=== PATIENT | male | born 1960 | race Caucasian/White ===

== ENCOUNTER 2021-04-20 14:40 | Emergency (ER) | payer OTHER, SELFPAY ==
[2021-04-20 14:44] VITALS: BP 152/99; PULSE 99; RESP 22; TEMP 36.9; O2SAT 97; BMI 33.4
--- NOTE | 2021-04-20 14:51 | ECG_ITS ---
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 Measurements Intervals [place] Rate: 104 P: 42 NC: 130 QRS: -6 QRSD: 93 T: 30 QT: 335 QTc: 442 Interpretive Statements SINUS TACHYCARDIA No previous ECG available for comparison Electronically Signed On 04-20-2021 18:08:48 CDT by Ramón العراقي M.D. [id number]
--- NOTE | 2021-04-20 15:09 | XRR_ITS ---
PROCEDURE INFORMATION: Exam: XR Chest Exam date and time: 04/20/2021 4:15 PM Age: 60 years old Clinical indication: Other: Chest pain TECHNIQUE: Imaging protocol: XR of the chest. Views: 1 view. COMPARISON: No relevant prior studies available. FINDINGS: Lungs: Unremarkable. No consolidation. Pleural spaces: Unremarkable. No pleural effusion. No pneumothorax. Heart/Mediastinum: Unremarkable. No cardiomegaly. Bones/joints: Unremarkable. XR/XR chest 1V portable [id number] IMPRESSION: No acute findings.
[2021-04-20 16:12] VITALS: BP 143/85; PULSE 86; RESP 19; O2SAT 97
[2021-04-20 16:15] LABS: Basophils % 0.2 %; Hematocrit 45.6 % (42.0-52.0); Hemoglobin 16.2 g/dL (11.7-16.6); Lymphocytes # 0.9 10^3/uL (0.8-4.8); Lymphocytes % 14.7 %; Mean Corpuscular HGB Conc 35.5 g/dL (30.0-36.0); Mean Corpuscular Hemoglobin 30.5 pg (28.0-34.0); Mean Corpuscular Volume 85.7 fL (80-94); Mean Platelet Volume 10.9 fL (7.4-10.4); Monocytes # 0.3 10^3/uL (0.2-0.9); Monocytes % 4.2 %; Neutrophils # 4.83 10^3/uL (1.8-7.7); Neutrophils % 80.4 %; Nucleated Red Blood Cells % 0 %; Platelet Count 133 10^3/cmm (130-400); Red Blood Count 5.32 10^6/uL (4.1-5.3); Red Cell Distribution Width 12.1 % (12.1-15.1)
[2021-04-20 16:27] VITALS: O2SAT 95
[2021-04-20 16:44] VITALS: TEMP 37.4
[2021-04-20 16:49] LABS: Alanine Aminotransferase 54 U/L (0-41); Albumin Level 3.8 g/dL (3.5-5.2); Alkaline Phosphatase 44 IU/L (40-130); Anion Gap 16.7 (5-19); Aspartate Amino Transferase 82 U/L (0-40); Blood Urea Nitrogen 11 mg/dL (6-20); Calcium 8.1 mg/dL (8.5-10.5); Carbon Dioxide 24 mmol/L (22-29); Chloride 98 mmol/L (98-107); Globulin 2.5 g/dL (1.3-4.6); Glomerular Filtration Rate 99.3 mL/min (90-130); Glucose 123 mg/dL (65-115); Lipase 42 U/L (13-60); Osmolality Calculated 281 mOsm/kg (285-295); Potassium 3.7 mmol/L (3.5-5.1); Sodium 135 mmol/L (136-145); Total Bilirubin 0.5 mg/dL (0.15-1.2); Total Protein 6.3 g/dL (6.6-8.7)
[2021-04-20 16:50] LABS: Troponin(5th) Baseline 7 ng/L (0-15)
[2021-04-20 16:54] LABS: NT Pro B Type Natriuretic Pept 5 pg/mL (0-125); Procalcitonin 0.06 ng/mL (0-0.5)
[2021-04-20 17:02] VITALS: BP 126/81; PULSE 84; RESP 20; O2SAT 96
[2021-04-20 17:05] LABS: C Reactive Protein 38.5 mg/L (0.0-4.9)
[2021-04-20 17:12] LABS: Fibrinogen 498 mg/dL (174-498)
[2021-04-20 17:15] LABS: D Dimer 0.46 ug/mIFEU (0-0.59)
[2021-04-20 17:17] LABS: Ferritin 2321 ng/mL (30-400)
[2021-04-20 17:21] LABS: Lactic Sepsis W/Reflex 1.2 mmol/L (0.5-2.2)
[2021-04-20 17:23] LABS: SARS Covid-2 Antigen Positive (Negative)
--- NOTE | 2021-04-20 18:29 | ED_ITS ---
HPI - COVID General: Chief Complaint: COVID symptoms Stated Complaint: Chest Pain, SOB Time Seen by Provider: 04/20/21 15:54 Source: patient and RN notes reviewed Mode of arrival: ambulatory Limitations: no limitations Triage information: No fever, cough or shortness of breath . Exposure to COVID + person last 14 days History of Present Illness: HPI Narrative: 60-year-old male presents to the emergency department with fever, progressively worsening shortness of breath. Symptoms started 8 days ago. His daughter and son-in-law tested positive for COVID-19 and is currently on quarantine. He endorses some chest pain that started today. MD complaint: reported COVID exposure and has COVID symptoms Prior covid testing: no COVID 19 common symptoms: positive fever(s), chills, cough, dyspnea, fatigue, body aches and nausea; negative headache(s), loss of sense of smell and/or taste, throat pain, nasal congestion or vomiting COVID 19 other sytmptoms: positive chest pain and lethargy; negative requiring oxygen, requiring more oxygen, respiratory distress, cyanosis, confusion or new neurological complaints Onset (ago): day(s) (8) Severity: moderate Pertinent comorbid conditions: hypertension Treatment prior to arrival: none COVID Results: SARS-CoV-2 Antigen (Rapid) Positive (Negative) H 04/20/21 16:06 04/20/21 Review of Systems General: Reports: 10 or more systems reviewed and unremarkable except in HPI and below Const: Reports: fever(s), chills, body aches and fatigue ENMT: Denies: throat pain or nasal congestion Card: Reports: chest pain Resp: Reports: dyspnea GI: Reports: nausea; Denies: vomiting Neuro: Denies: headache(s) or confusion Physical Exam Const: COMMON NORMALS: no acute distress, average body habitus, patient oriented x3, no limitations, healthy appearing, alert and well nourished HENMT: COMMON NORMALS: normocephalic, atraumatic and moist oral mucous membranes HEAD & SCALP: normocephalic and atraumatic Neck/C-Spine: COMMON NORMALS: no meningeal signs and no JVD Chest: COMMONS NORMALS: normal inspection of the chest and normal palpation of entire chest wall Resp: COMMON NORMALS: normal respiratory effort, No retractions, No use of accessory muscles, clear to auscultation bilaterally and percussion normal AUSCULTATION: clear to auscultation bilaterally PERCUSSION: percussion normal Cardio: COMMON NORMALS: no JVD, regular rate, regular rhythm, S1 normal heart sound present, S2 normal heart sound present, No gallops present (Cardio), No clicks present (Cardio), No murmurs present (Cardio), No rub (Cardio) and Peripheral pulses 2+ throughout RATE: regular rate RHYTHM: regular rhythm HEART SOUNDS: S1 normal heart sound present and S2 normal heart sound present PERIPHERAL PULSES: Peripheral pulses 2+ throughout GI: COMMON NORMALS: Normal to inspection, nondistended, normoactive bowel sounds present, Soft to palpation, non-tender, No hepatosplenomegaly present, no masses and no bruits PALPATION: Yes Soft to palpation and Yes No hepatosplenomegaly present Extremity: COMMON NORMALS: normal to inspection, full ROM, capillary refill normal, no calf tenderness and no pedal edema Neuro: COMMON NORMALS: patient oriented x3 SENSORIUM/ORIENTATION: Yes alert MENINGEAL SIGNS: Yes no meningeal signs Course Vital Signs: Vital signs: Vital Signs Temperature 99.3 F 04/20/21 16:44 Pulse Rate 90 04/20/21 18:54 Respiratory Rate 19 H 04/20/21 18:54 Blood Pressure 128/82 04/20/21 18:54 Pulse Oximetry 96 04/20/21 18:54 MDM - COVID MDM Narrative: Medical decision making narrative: 60-year-old male who presents to the emergency department with Covid symptoms. His daughter currently has Covid and is on quarantine. Symptoms include fever, body aches, some chest pain. Evaluation in the emergency department shows he tested p ositive for COVID-19. Other work-up unremarkable. He is not requiring oxygen and his oxygen saturation is around 97% on room air. He is discharged home. He will be scheduled for a monoclonal antibody infusion. Medical Records: Attestation: I reviewed the patient's medical records. Lab Data: Attestation: I reviewed the patient's lab results. Labs: Lab Results 04/20/21 04/20/21 04/20/21 Range/Units 16:06 16:06 16:06 WBC 6.0 (4.0-10.0) 10^3/ uL RBC 5.32 H (4.1-5.3) 10^6/u L Hgb 16.2 (11.7-16.6) g/dL Hct 45.6 (42.0-52.0) % MCV 85.7 (80-94) fL MCH 30.5 (28.0-34.0) pg MCHC 35.5 (30.0-36.0) g/dL RDW 12.1 (12.1-15.1) % Plt Count 133 (130-400) 10^3/c mm MPV 10.9 H (7.4-10.4) fL Neut % (Auto) 80.4 % Lymph % (Auto) 14.7 % [place] % (Auto) 4.2 % Eos % (Auto) 0.0 % Baso % (Auto) 0.2 % Neut # (Auto) 4.83 (1.8-7.7) 10^3/u L Lymph # (Auto) 0.9 (0.8-4.8) 10^3/u L [place] # (Auto) 0.3 (0.2-0.9) 10^3/u L Eos # (Auto) 0.0 (0.0-0.8) 10^3/u L Baso # (Auto) 0.0 (0.0-0.1) 10^3/u L Nucleated RBC % (a uto) 0 % Nucleated RBCs # 0.0 /100WBC Fibrinogen (174-498) mg/dL D-Dimer (0-0.59) ug/mIFE U Sodium 135 L (136-145) mmol/L Potassium 3.7 (3.5-5.1) mmol/L Chloride 98 (98-107) mmol/L Carbon Dioxide 24 (22-29) mmol/L Anion Gap 16.7 (5-19) BUN 11 (6-20) mg/dL Creatinine 0.8 (0.7-1.2) mg/dL GFR Calculation 99.3 (90-130) mL/min Glucose 123 H (65-115) mg/dL Calculated Osmolal ity 281 L (285-295) mOsm/k g Lactic Acid (0.5-2.2) mmol/L Calcium 8.1 L (8.5-10.5) mg/dL Ferritin (30-400) ng/mL Total Bilirubin 0.5 (0.15-1.2) mg/dL AST 82 H (0-40) U/L ALT 54 H (0-41) U/L Alkaline Phosphata se 44 (40-130) IU/L Troponin T Baselin e 7 (0-15) ng/L Troponin T 120 Min nondalton (0-15) ng/L Delta Troponin T (0-10) ABS# C-Reactive Protein (0.0-4.9) mg/L NT-Pro-B Natriuret Pep (0-125) pg/mL Total Protein 6.3 L (6.6-8.7) g/dL Albumin 3.8 (3.5-5.2) g/dL Globulin 2.5 (1.3-4.6) g/dL Lipase 42 (13-60) U/L Procalcitonin (0-0.5) ng/mL SARS-CoV-2 Ag (Rap id) (Negative) 04/20/21 04/20/21 04/20/21 Range/Units 16:06 16:06 16:36 WBC (4.0-10.0) 10^3/ uL RBC (4.1-5.3) 10^6/u L Hgb (11.7-16.6) g/dL Hct (42.0-52.0) % MCV (80-94) fL MCH (28.0-34.0) pg MCHC (30.0-36.0) g/dL RDW (12.1-15.1) % Plt Count (130-400) 10^3/c mm MPV (7.4-10.4) fL Neut % (Auto) % Lymph % (Auto) % [place] % (Auto) % Eos % (Auto) % Baso % (Auto) % Neut # (Auto) (1.8-7.7) 10^3/u L Lymph # (Auto) (0.8-4.8) 10^3/u L [place] # (Auto) (0.2-0.9) 10^3/u L Eos # (Auto) (0.0-0.8) 10^3/u L Baso # (Auto) (0.0-0.1) 10^3/u L Nucleated RBC % (a uto) % Nucleated RBCs # /100WBC Fibrinogen 498 (174-498) mg/dL D-Dimer 0.46 (0-0.59) ug/mIFE U Sodium (136-145) mmol/L Potassium (3.5-5.1) mmol/L Chloride (98-107) mmol/L Carbon Dioxide (22-29) mmol/L Anion Gap (5-19) BUN (6-20) mg/dL Creatinine (0.7-1.2) mg/dL GFR Calculation (90-130) mL/min Glucose (65-115) mg/dL Calculated Osmolal ity (285-295) mOsm/k g Lactic Acid (0.5-2.2) mmol/L Calcium (8.5-10.5) mg/dL Ferritin 2321 H (30-400) ng/mL Total Bilirubin (0.15-1.2) mg/dL AST (0-40) U/L ALT (0-41) U/L Alkaline Phosphata se (40-130) IU/L Troponin T Baselin e (0-15) ng/L Troponin T 120 Min nondalton (0-15) ng/L Delta Troponin T (0-10) ABS# C-Reactive Protein 38.5 H (0.0-4.9) mg/L NT-Pro-B Natriuret Pep 5 (0-125) pg/mL Total Protein (6.6-8.7) g/dL Albumin (3.5-5.2) g/dL Globulin (1.3-4.6) g/dL Lipase (13-60) U/L Procalcitonin 0.06 (0-0.5) ng/mL SARS-CoV-2 Ag (Rap id) Positive H (Negative) 04/20/21 04/20/21 Range/Units 16:36 18:18 WBC (4.0-10.0) 10^3/ uL RBC (4.1-5.3) 10^6/u L Hgb (11.7-16.6) g/dL Hct (42.0-52.0) % MCV (80-94) fL MCH (28.0-34.0) pg MCHC (30.0-36.0) g/dL RDW (12.1-15.1) % Plt Count (130-400) 10^3/c mm MPV (7.4-10.4) fL Neut % (Auto) % Lymph % (Auto) % [place] % (Auto) % Eos % (Auto) % Baso % (Auto) % Neut # (Auto) (1.8-7.7) 10^3/u L Lymph # (Auto) (0.8-4.8) 10^3/u L [place] # (Auto) (0.2-0.9) 10^3/u L Eos # (Auto) (0.0-0.8) 10^3/u L Baso # (Auto) (0.0-0.1) 10^3/u L Nucleated RBC % (a uto) % Nucleated RBCs # /100WBC Fibrinogen (174-498) mg/dL D-Dimer (0-0.59) ug/mIFE U Sodium (136-145) mmol/L Potassium (3.5-5.1) mmol/L Chloride (98-107) mmol/L Carbon Dioxide (22-29) mmol/L Anion Gap (5-19) BUN (6-20) mg/dL Creatinine (0.7-1.2) mg/dL GFR Calculation (90-130) mL/min Glucose (65-115) mg/dL Calculated Osmolal ity (285-295) mOsm/k g Lactic Acid 1.2 (0.5-2.2) mmol/L Calcium (8.5-10.5) mg/dL Ferritin (30-400) ng/mL Total Bilirubin (0.15-1.2) mg/dL AST (0-40) U/L ALT (0-41) U/L Alkaline Phosphata se (40-130) IU/L Troponin T Baselin e (0-15) ng/L Troponin T 120 Min nondalton 6.83 (0-15) ng/L Delta Troponin T -0.17 L (0-10) ABS# C-Reactive Protein (0.0-4.9) mg/L NT-Pro-B Natriuret Pep (0-125) pg/mL Total Protein (6.6-8.7) g/dL Albumin (3.5-5.2) g/dL Globulin (1.3-4.6) g/dL Lipase (13-60) U/L Procalcitonin (0-0.5) ng/mL SARS-CoV-2 Ag (Rap id) (Negative) Imaging Data: CXR: Attestation: I personally reviewed and interpreted this imaging study as follows: Radiologist's impression: [id number] [place], [place] [address]WDdc ReportSigned Patient: Arley Bhatt RUnit #: [id number]: 1960cct#:[id number]/Sex: 60 / MADM Date: 04/20/21Loc: ERRoom/Bed:Attending Dr: Ordering Provider/Ordering MD: Sofía Valdivia NP Date of Service: 04/20/21 Procedure(s): XR chest 1V portable [id number] Accession Number(s): [id number] Report Number: [id number] PROCEDURE INFORMATION: Exam: XR Chest Exam date and time: 04/20/2021 4:15 PM Age: 60 years old Clinical indication: Other: Chest pain TECHNIQUE: Imaging protocol: XR of the chest. Views: 1 view. COMPARISON: No relevant prior studies available. FINDINGS: Lungs: Unremarkable. No consolidation. Pleural spaces: Unremarkable. No pleural effusion. No pneumothorax. Heart/Mediastinum: Unremarkable. No cardiomegaly. Bones/joints: Unremarkable. XR/XR chest 1V portable [id number] IMPRESSION: No acute findings. Dictated By:Philomena Boyd By:Philomena Boyd Date/Time:04/20/21 1906DD/ 1708 EKG Data: EKG 1: Attestation: I personally reviewed and interpreted this EKG as follows: EKG interpretation date: 04/20/21 EKG interpretation time: 17:34 Prior EKG tracings: not available for review Interpretation: Sinus rhythm. Heart rate 80 bpm. Normal axis. No ST changes. COVID Results: SARS-CoV-2 Antigen (Rapid) Positive (Negative) H 04/20/21 16:06 04/20/21 Monoclonal Antibody Treatments Inclusion/Exclusion Criteria weight >/= 40 kg and + direct Sars-Cov-2 test less than 7-10 days ago age >/= 55 and has hypertension not requiring hospitalization and not requiring oxygen (if not chronically on oxygen) Plan for treatment Meets criteria for Monoclonal Antibody infusion Ordering Monoclonal Antibody infusion for another day Discharge Plan Discharge Patient Disposition: Home Clinical Impression: COVID-19 Condition: Stable Prescriptions: Continued Tylenol Extra Strength 500 mg Tablet 1,000 mg PO PRN RF: 0 lisinopril 10 mg tablet 10 mg PO QAM RF: 0 Nasacort 55 mcg Aerosol,[place] 2 spray INTRANASAL BID RF: 0 ibuprofen 200 mg Tablet 600 mg PO PRN RF: 0 sertraline 50 mg tablet 50 mg PO QAM RF: 0 Vitamin C 1 tab PO DAILY RF: 0 Vitamin D3 1 tab PO DAILY RF: 0 zinc 1 tab PO DAILY RF: 0 Discharge Orders: Discharge ED (Routine); Ordered 04/20/21 Ordered By: Alicia Crespo Discharge Diet: Usual diet Discharge Activity: Increase activity as tolerated Patient Instructions: Viral Syndrome (ED) Activity Restrictions/Additional Instructions: Return for any new or worsening symptoms. Follow-up with your primary care provider within 3 days via telemedicine. Check your oxygen saturation using the probe that we sent you home with and if your oxygen saturation drops below 90% that stays below 90% you need to be evaluated in the emergency department. Continue your home medications. Drink plenty of water to keep well-hydrated. Coding Level of Care Code ED Mash Grinder for Dillong Fwd Exam Comprehensive
[2021-04-20 18:42] LABS: Troponin 5 2HR 6.83 ng/L (0-15)
[2021-04-20 18:48] LABS: Troponin 5 2HR Delta -0.17 ABS# (0-10)
[2021-04-20 18:54] VITALS: BP 128/82; PULSE 90; RESP 19; O2SAT 96
--- NOTE | 2021-04-22 11:11 | DCPLANNER ---
analytical research program manager had message to schedule a covid infusion for patient. Before case loader operator could fax order to centralized scheduling, patient came back and was seen in the ER and required home O2. analytical research program manager did not order the infusion.
== END 2021-04-20 18:55 | disposition home or self-care (01) ==
PROVIDERS: Registered Nurse; Emergency Provider Family Medicine
DX: U07.1 COVID-19 (principal)
CPT/HCPCS: 36415; 71045; 80053; 82728; 83605; 83690; 83880; 84145; 84484; 85025; 85378; 85384; 86140; 87426; 93005; 99283

== ENCOUNTER 2021-04-21 08:43 | Emergency (ER) | payer OTHER, SELFPAY ==
[2021-04-21] VITALS (10 sets, daily range): BP systolic 119–151; BP diastolic 42–89; PULSE 87–99; RESP 18–20; TEMP 36.3; O2SAT 88–97; BMI 33.4
--- NOTE | 2021-04-21 09:07 | XRR_ITS ---
PROCEDURE INFORMATION: Exam: XR Chest Exam date and time: 04/21/2021 9:07 AM Age: 60 years old Clinical indication: Cough and dyspnea; Patient HX: History--shortness of breath; Cough; Weakness; Additional info: Dyspnea/cough TECHNIQUE: Imaging protocol: XR of the chest. Views: 1 view. COMPARISON: CR XR chest 1V portable [id number] 04/20/2021 4:15 PM FINDINGS: Lungs: Low lung volumes. There is mildly increased lung markings and suggestion subtle hazy peripheral opacities involving mainly the lower lungs. No consolidation. Pleural spaces: Unremarkable. No pleural effusion. No pneumothorax. Heart/Mediastinum: Stable cardiomediastinal silhouette. Bones/joints: Unremarkable. XR/XR chest 1V portable [id number] IMPRESSION: Imaging findings concerning for pneumonia.
--- NOTE | 2021-04-21 09:09 | ED_ITS ---
HPI - COVID General: Chief Complaint: Shortness of Breath/Dyspnea Stated Complaint: SOB, Chest Pain, Weakness Time Seen by Provider: 04/21/21 08:44 History of Present Illness: HPI Narrative: 60-year-old male who was seen yesterday tested positive for Covid. Several other family members were positive. He was scheduled to get a monoclonal antibody infusion his sats yesterday in the emergency room were 97% they are little bit worse today when he arrives in the mid 90s he is reporting with any exertion and dropped into the upper 80s or mid 80s. He has a history of hypertension. He is not diabetic. Patient symptoms first began on 04/12 he is on day 9 of symptoms. MD complaint: known COVID positive Prior covid testing: yes, results known Prior testing date: 04/20/21 COVID 19 common symptoms: positive fever(s), chills, cough, non-productive cough, dyspnea, fatigue, body aches, headache(s), loss of sense of smell and/or taste, nasal congestion, nausea and diarrhea; negative vomiting COVID 19 other sytmptoms: positive requiring more oxygen; negative chest pain Onset (ago): day(s) Severity: moderate Pertinent comorbid conditions: hypertension and obesity Treatment prior to arrival: none COVID Results: SARS-CoV-2 Antigen (Rapid) Positive (Negative) H 04/20/21 16:06 04/20/21 Review of Systems Const: Reports: fever(s), chills, body aches and fatigue ENMT: Reports: nasal congestion Card: Denies: chest pain, edema, dyspnea on exertion or orthopnea Resp: Reports: dyspnea and non-productive cough GI: Reports: nausea and diarrhea; Denies: vomiting : Denies: flank pain, dysuria, urinary frequency or urinary urgency Skin/Breast: Denies: rash or pruritus Neuro: Reports: headache(s) Physical Exam 2 Const: COMMON NORMALS: no acute distress GENERAL APPEARANCE: cooperative and comfortable ORIENTATION/CONSCIOUSNESS: Yes awake, Yes oriented to person, Yes oriented to place and Yes oriented to time HENMT: COMMON NORMALS: normocephalic, atraumatic, hearing grossly normal bilaterally and external ears normal HEAD & SCALP: normocephalic and atraumatic EXTERNAL EAR: Yes external ears normal Neck/C-Spine: COMMON NORMALS: no JVD Resp: COMMON NORMALS: normal respiratory effort, No retractions and No use of accessory muscles AUSCULTATION: wheezes Cardio: COMMON NORMALS: no JVD, regular rate, regular rhythm and No murmurs present (Cardio) RATE: regular rate RHYTHM: regular rhythm GI: COMMON NORMALS: Soft to palpation and No hepatosplenomegaly present A USCULTATION: Yes normoactive bowel sounds PALPATION: Yes Soft to palpation, No Tenderness to palpation present (GI), No Guarding due to palpation present (GI) and Yes No hepatosplenomegaly present Extremity: COMMON NORMALS: normal to inspection, capillary refill normal, no clubbing, cyanosis or edema, no calf tenderness and no pedal edema Neuro: SENSORIUM/ORIENTATION: Yes oriented to person, Yes oriented to place and Yes oriented to time Skin: COMMON NORMALS: no rashes or lesions noted GENERAL SKIN EXAM: no rashes or lesions noted Course Vital Signs: Vital signs: Vital Signs Temperature 97.3 F L 04/21/21 09:04 Pulse Rate 90 04/21/21 10:20 Respiratory Rate 18 04/21/21 10:20 Blood Pressure 150/89 04/21/21 10:20 Pulse Oximetry 95 04/21/21 10:20 MDM - COVID MDM Narrative: Medical decision making narrative: Patient is now requiring oxygen unfortunately he will not be a candidate for monoclonal antibodies. We will add dexamethasone. Continue to monitor oxygen saturations. Advised patient to anticipate continued cough and sensation of shortness of breath. He is not having any chest pain and he is not particularly tachycardic. COVID Results: SARS-CoV-2 Antigen (Rapid) Positive (Negative) H 04/20/21 16:06 04/20/21 Monoclonal Antibody Treatments Inclusion/Exclusion Criteria weight >/= 40 kg age >/= 55 and has hypertension Plan for treatment Does not meet criteria (DO NOT GIVE) Discharge Plan Discharge Patient Disposition: Home Clinical Impression: COVID-19 Condition: Stable Prescriptions: New dexamethasone 6 mg tablet 6 mg PO DAILY Qty: 7 RF: 0 No Action Tylenol Extra Strength 500 mg Tablet 1,000 mg PO PRN RF: 0 lisinopril 10 mg tablet 10 mg PO QAM RF: 0 Nasacort 55 mcg Aerosol,[place] 2 spray INTRANASAL BID RF: 0 ibuprofen 200 mg Tablet 600 mg PO PRN RF: 0 sertraline 50 mg tablet 50 mg PO QAM RF: 0 Vitamin C 1 tab PO DAILY RF: 0 Vitamin D3 1 tab PO DAILY RF: 0 zinc 1 tab PO DAILY RF: 0 Discharge Orders: Discharge ED (Routine); Ordered 04/21/21 Ordered By: Kvng Ramirez Other Ambulatory Orders: DME: Oxygen (Order) Location: None Selected Ordered By: Kvng Ramirez Discharge Diet: Usual diet Discharge Activity: Limit activity as instructed Patient Instructions: Opioid Safety Activity Restrictions/Additional Instructions: Wear oxygen continuously. Monitor oxygen sats. If persistently below 90 return to the emergency room. With activity that it will tend to drop some. Monitor while at rest. Coding Level of Care Code ED Isotope Technologist for Tequila Fwd Exam Comprehensive
--- NOTE | 2021-04-21 09:57 | ECG_ITS ---
[facility] Test Date: 2021-04-21 Pat Name: Arley Bhatt Department: Room: Gender: Male Bee Tender: : 1960 Requested By: Kvng Mckenna Order Number: [id number] Taina MD: Benito Calix M.D. Measurements Intervals [place] Rate: 89 P: 62 CT: 142 QRS: 8 QRSD: 103 T: 8 QT: 344 QTc: 419 Interpretive Statements SINUS RHYTHM Compared to ECG 04/20/2021 14:58:03 Sinus tachycardia no longer present Electronically Signed On 04-22-2021 0:31:04 CDT by Benito Calix M.D. [id number]
[2021-04-21] MEDS: dexamethasone 10 mg/mL INJ IM (11:43)
== END 2021-04-21 12:43 | disposition home or self-care (01) ==
PROVIDERS: Emergency Provider Family Medicine
DX: U07.1 COVID-19 (principal)
CPT/HCPCS: 71045; 93005; 96372; 99284; J1100

== ENCOUNTER 2021-04-26 09:07 | Inpatient (IN) | payer OTHER, SELFPAY ==
[2021-04-26] VITALS (10 sets, daily range): BP systolic 131–151; BP diastolic 68–98; PULSE 69–106; RESP 16–38; TEMP 36.9–38.8; O2SAT 89–98; BMI 34.2
--- NOTE | 2021-04-26 09:25 | XRR_ITS ---
PROCEDURE INFORMATION: Exam: XR Chest Exam date and time: 04/26/2021 9:25 AM Age: 60 years old Clinical indication: Shortness of breath; Additional info: SOB TECHNIQUE: Imaging protocol: XR of the chest. Views: 1 view. COMPARISON: CR XR chest 1V portable [id number] 04/21/2021 9:12 AM FINDINGS: Lungs: Patchy diffuse interstitial and alveolar airspace disease most pronounced in the perihilar regions and lung bases. Edema and/or pneumonia. Pleural spaces: Unremarkable. No pleural effusion. No pneumothorax. Heart/Mediastinum: Unremarkable. No cardiomegaly. Bones/joints: Unremarkable. XR/XR chest 1V portable [id number] IMPRESSION: Patchy diffuse interstitial and alveolar airspace disease most pronounced in the perihilar regions and lung bases. Edema and/or pneumonia. Likely infectious.Covid within the differential diagnosis and of concern.
--- NOTE | 2021-04-26 09:38 | W.ED.SOB ---
Documented by User: KELLIE Garcia 04/27/21 07:40 HPI - SOB/Dyspnea General: Chief Complaint: Shortness of Breath/Dyspnea Stated Complaint: SOB Time Seen by Provider: 04/26/21 09:12 History of Present Illness: HPI Narrative: Patient is a 60-year-old male comes to the ED with shortness of breath. Patient was seen here in the ED on April 20 and April 21. He is was diagnosed with COVID-19 and on April 21 he was discharged home on oxygen. Patient said he is been using 2 L of oxygen at home continuously and his shortness of breath has been increasing and he went up to 2-1/2 L of O2. And endorses a mild dry cough. Denies any fever, chills, chest pain, abdominal pain, bladder or bowel symptoms. He states that he feels fatigued and has not had much sleep over the past 2 days. His shortness of breath he feels just keeps getting worse. Upon arrival to the unit patient was on 4 L of oxygen and O2 sat was around 90 to 92%. Associated symptoms: Deny abdominal pain, chest pain, fever(s), nausea, orthopnea, palpitations or vomiting Review of Systems Const: Denies: fever(s), chills or fatigue Eyes: Denies: change in vision or eye discomfort ENMT: Denies: throat pain, odynophagia, nasal discharge or nasal congestion Card: Denies: chest pain, palpitations, edema, swelling of feet/ankles, dyspnea on exertion or orthopnea Resp: Reports: dyspnea and non-productive cough; Denies: productive cough GI: Denies: abdominal pain, nausea, vomiting, diarrhea, constipation or hematochezia : Denies: flank pain, difficulty urinating, dysuria or hematuria Musc: Denies: neck pain, back pain or extremity swelling Skin/Breast: Denies: rash or new lesions Neuro: Denies: headache(s), numbness in extremities or weakness in extremities PFS ED PFSH: Medical History COVID-19 Diagnosed on 04.20.21 Hypertension Surgical History No pertinent past surgical history Social History Smoking and tobacco status: never smoked Alcohol intake: current Substance/Drug Use: never Physical Exam Const: COMMON NORMALS: patient oriented x3 HENMT: COMMON NORMALS: normocephalic HEAD & SCALP: normocephalic MOUTH: Normal oral and palatal mucosa present THROAT: posterior oropharynx normal and uvula midline Neck/C-Spine: COMMON NORMALS: supple GENERAL: Yes normal visual inspection Resp: COMMON NORMALS: normal respiratory effort, No retractions and No use of accessory muscles EFFORT & INSPECTION: Yes able to speak in complete sentences, Yes tachypneic and Yes respiratory distress AUSCULTATION: crackles Laterality: bilateral (bases) Cardio: COMMON NORMALS: regular rate, regular rhythm, S1 normal heart sound present, S2 normal heart sound present, No gallops present (Cardio), No clicks present (Cardio), No murmurs present (Cardio) and Peripheral pulses 2+ throughout RATE: regular rate RHYTHM: regular rhythm HEART SOUNDS: S1 normal heart sound present and S2 normal heart sound present PERIPHERAL PULSES: Peripheral pulses 2+ throughout GI: COMMON NORMALS: Normal to inspection, nondistended, normoactive bowel sounds present, Soft to palpation, non-tender and no masses PALPATION: Yes Soft to palpation : COMMON NORMALS: Yes no CVA tenderness BLADDER/KIDNEY EXAM: Yes no CVA tenderness Back/Pelvis: COMMON NORMALS: no CVA tenderness Extremity: COMMON NORMALS: normal to inspection Neuro: COMMON NORMALS: patient oriented x3 and moves all extremities Skin: GENERAL SKIN EXAM: dry skin Course Vital Signs: Vital signs: Vital Signs Temperature 98.4 F 04/27/21 04:00 Pulse Rate 60 04/27/21 06:45 Respiratory Rate 20 H 04/27/21 04:00 Blood Pressure 138/82 04/27/21 04:00 Pulse Oximetry 91 04/27/21 04:00 MDM - SOB/Dyspnea MDM Narrative: Medical decision making narrative: Patient is a 60-year-old male comes in the ED with dyspnea. He was seen here in the ED April 21 and Diagnosed with COVID-19 and sent home on oxygen. Patient says he has been having worsening shortness of breath. Here in the ED patient has been he is on 4 L of oxygen and statting around 90-92%. ABG was done and blood pH was 7.64, CO2 20.3 and O2 42.6. Patient was given some Ativan to help with air hunger breathing put on high flow oxygen. Chest x-ray Patchy diffuse interstitial and alveolar airspace disease most pronounced in the perihilar regions and lung bases. Edema and/or pneumonia. Likely infectious.Covid within the differential diagnosis and of concern. Put patient on Zosyn and ordered a D-dimer as well. I spoke with Dr. Palomo until about patient care and he took over care of patient due to patient's critical level. Dr. Palomo's can have patient admitted in the hospital. Lab Data: Attestation: I reviewed the patient's lab results. Labs: Lab Results 04/26/21 04/26/21 04/26/21 Range/Units 09:53 10:05 10:05 WBC 12.2 H (4.0-10.0) 10^3/ uL RBC 5.27 (4.1-5.3) 10^6/u L Hgb 15.9 (11.7-16.6) g/dL Hct 46.1 (42.0-52.0) % MCV 87.5 (80-94) fL MCH 30.2 (28.0-34.0) pg MCHC 34.5 (30.0-36.0) g/dL RDW 12.6 (12.1-15.1) % Plt Count 248 (130-400) 10^3/c mm MPV 10.4 (7.4-10.4) fL Neut % (Auto) 86.8 % Lymph % (Auto) 7.3 % Whitley % (Auto) 3.5 % Eos % (Auto) 0.0 % Baso % (Auto) 0.2 % Neut # (Auto) 10.56 H (1.8-7.7) 10^3/u L Lymph # (Auto) 0.9 (0.8-4.8) 10^3/u L Whitley # (Auto) 0.4 (0.2-0.9) 10^3/u L Eos # (Auto) 0.0 (0.0-0.8) 10^3/u L Baso # (Auto) 0.0 (0.0-0.1) 10^3/u L Nucleated RBC % (a uto) 0 % Nucleated RBCs # 0.0 /100WBC D-Dimer (0-0.59) ug/mIFE U Specimen Type Arterial Sample Site Brachial, left ABG pH 7.64 H* (7.35-7.45) ABG pCO2 20.3 L (35-45) mmHg ABG pO2 42.6 L (80.0-100.0) mmH g ABG HCO3 22.1 (22-26) mmol/L ABG O2 Saturation 87.3 ABG Base Excess 3.7 H (-2.0-2.0) mmol/ L Ezra Test Pos A-a O2 Gradient 24.5 H (5-10) mmHg Hematocrit 49.0 (42-52) % Hgb O2 Saturation 85.9 L (95-100) % Carboxyhemoglobin 0.9 (0.4-20.1) %THgb Methemoglobin 0.7 (0.4-1.5) % Total Hemoglobin 16.0 (14-18) g/dL Sodium 132.0 Cancelled (131-143) mmol/L Potassium 3.7 Cancelled (3.5-5.0) mmol/L Glucose 100.0 Cancelled (70-115) mg/dL Ionized Calcium 1.1 (1.1-1.4) mmol/L O2 Delivery Device Nc O2 Liters/Min 4.0 % FiO2 36.0 % Die Repair Machinist ID Cak Chloride Cancelled Carbon Dioxide Cancelled Anion Gap Cancelled BUN Cancelled Creatinine Cancelled GFR Calculation Cancelled Calculated Osmolal ity Cancelled Lactic Acid Lactic Acid (Sepsi s) (0.5-2.2) mmol/L Lactate (0.5-2.2) mmol/L Calcium Cancelled Ferritin Cancelled Total Bilirubin Cancelled AST Cancelled ALT Cancelled Alkaline Phosphata se Cancelled Troponin T Baselin e Troponin T 120 Min [place] (0-15) ng/L Delta Troponin T (0-10) ABS# NT-Pro-B Natriuret Pep Cancelled Total Protein Cancelled Albumin Cancelled Globulin Cancelled Procalcitonin Cancelled 04/26/21 04/26/21 04/26/21 Range/Units 10:05 10:05 10:58 WBC (4.0-10.0) 10^3/ uL RBC (4.1-5.3) 10^6/u L Hgb (11.7-16.6) g/dL Hct (42.0-52.0) % MCV (80-94) fL MCH (28.0-34.0) pg MCHC (30.0-36.0) g/dL RDW (12.1-15.1) % Plt Count (130-400) 10^3/c mm MPV (7.4-10.4) fL Neut % (Auto) % Lymph % (Auto) % Whitley % (Auto) % Eos % (Auto) % Baso % (Auto) % Neut # (Auto) (1.8-7.7) 10^3/u L Lymph # (Auto) (0.8-4.8) 10^3/u L Whitley # (Auto) (0.2-0.9) 10^3/u L Eos # (Auto) (0.0-0.8) 10^3/u L Baso # (Auto) (0.0-0.1) 10^3/u L Nucleated RBC % (a uto) % Nucleated RBCs # /100WBC D-Dimer 4.63 H (0-0.59) ug/mIFE U Specimen Type Sample Site ABG pH (7.35-7.45) ABG pCO2 (35-45) mmHg ABG pO2 (80.0-100.0) mmH g ABG HCO3 (22-26) mmol/L ABG O2 Saturation ABG Base Excess (-2.0-2.0) mmol/ L Ezra Test A-a O2 Gradient (5-10) mmHg Hematocrit (42-52) % Hgb O2 Saturation (95-100) % Carboxyhemoglobin (0.4-20.1) %THgb Methemoglobin (0.4-1.5) % Total Hemoglobin (14-18) g/dL Sodium (131-143) mmol/L Potassium (3.5-5.0) mmol/L Glucose (70-115) mg/dL Ionized Calcium (1.1-1.4) mmol/L O2 Delivery Device O2 Liters/Min % FiO2 % Die Repair Machinist ID Chloride Carbon Dioxide Anion Gap BUN Creatinine GFR Calculation Calculated Osmolal ity Lactic Acid Cancelled Lactic Acid (Sepsi s) (0.5-2.2) mmol/L Lactate (0.5-2.2) mmol/L Calcium Ferritin Total Bilirubin AST ALT Alkaline Phosphata se Troponin T Baselin e Cancelled Troponin T 120 Min [place] (0-15) ng/L Delta Troponin T (0-10) ABS# NT-Pro-B Natriuret Pep Total Protein Albumin Globulin Procalcitonin 04/26/21 04/26/21 04/26/21 Range/Units 10:58 10:58 10:58 WBC (4.0-10.0) 10^3/ uL RBC (4.1-5.3) 10^6/u L Hgb (11.7-16.6) g/dL Hct (42.0-52.0) % MCV (80-94) fL MCH (28.0-34.0) pg MCHC (30.0-36.0) g/dL RDW (12.1-15.1) % Plt Count (130-400) 10^3/c mm MPV (7.4-10.4) fL Neut % (Auto) % Lymph % (Auto) % Whitley % (Auto) % Eos % (Auto) % Baso % (Auto) % Neut # (Auto) (1.8-7.7) 10^3/u L Lymph # (Auto) (0.8-4.8) 10^3/u L Whitley # (Auto) (0.2-0.9) 10^3/u L Eos # (Auto) (0.0-0.8) 10^3/u L Baso # (Auto) (0.0-0.1) 10^3/u L Nucleated RBC % (a uto) % Nucleated RBCs # /100WBC D-Dimer (0-0.59) ug/mIFE U Specimen Type Sample Site ABG pH (7.35-7.45) ABG pCO2 (35-45) mmHg ABG pO2 (80.0-100.0) mmH g ABG HCO3 (22-26) mmol/L ABG O2 Saturation ABG Base Excess (-2.0-2.0) mmol/ L Ezra Test A-a O2 Gradient (5-10) mmHg Hematocrit (42-52) % Hgb O2 Saturation (95-100) % Carboxyhemoglobin (0.4-20.1) %THgb Methemoglobin (0.4-1.5) % Total Hemoglobin (14-18) g/dL Sodium 132 L (131-143) mmol/L Potassium 3.9 (3.5-5.0) mmol/L Glucose 91 (70-115) mg/dL Ionized Calcium (1.1-1.4) mmol/L O2 Delivery Device O2 Liters/Min % FiO2 % Die Repair Machinist ID Chloride 96 L Carbon Dioxide 23 Anion Gap 16.9 BUN 16 Creatinine 0.8 GFR Calculation 99.3 Calculated Osmolal ity 275 L Lactic Acid Lactic Acid (Sepsi s) (0.5-2.2) mmol/L Lactate 2.1 (0.5-2.2) mmol/L Calcium 8.4 L Ferritin 2813 H Total Bilirubin 0.7 AST 36 ALT 79 H Alkaline Phosphata se 56 Troponin T Baselin e 11 Troponin T 120 Min [place] (0-15) ng/L Delta Troponin T (0-10) ABS# NT-Pro-B Natriuret Pep 117 Total Protein 6.5 L Albumin 3.2 L Globulin 3.3 Procalcitonin 0.06 04/26/21 04/26/21 Range/Units 12:50 12:50 WBC (4.0-10.0) 10^3/ uL RBC (4.1-5.3) 10^6/u L Hgb (11.7-16.6) g/dL Hct (42.0-52.0) % MCV (80-94) fL MCH (28.0-34.0) pg MCHC (30.0-36.0) g/dL RDW (12.1-15.1) % Plt Count (130-400) 10^3/c mm MPV (7.4-10.4) fL Neut % (Auto) % Lymph % (Auto) % Whitley % (Auto) % Eos % (Auto) % Baso % (Auto) % Neut # (Auto) (1.8-7.7) 10^3/u L Lymph # (Auto) (0.8-4.8) 10^3/u L Whitley # (Auto) (0.2-0.9) 10^3/u L Eos # (Auto) (0.0-0.8) 10^3/u L Baso # (Auto) (0.0-0.1) 10^3/u L Nucleated RBC % (a uto) % Nucleated RBCs # /100WBC D-Dimer (0-0.59) ug/mIFE U Specimen Type Sample Site ABG pH (7.35-7.45) ABG pCO2 (35-45) mmHg ABG pO2 (80.0-100.0) mmH g ABG HCO3 (22-26) mmol/L ABG O2 Saturation ABG Base Excess (-2.0-2.0) mmol/ L Zera Test A-a O2 Gradient (5-10) mmHg Hematocrit (42-52) % Hgb O2 Saturation (95-100) % Carboxyhemoglobin (0.4-20.1) %THgb Methemoglobin (0.4-1.5) % Total Hemoglobin (14-18) g/dL Sodium (131-143) mmol/L Potassium (3.5-5.0) mmol/L Glucose (70-115) mg/dL Ionized Calcium (1.1-1.4) mmol/L O2 Delivery Device O2 Liters/Min % FiO2 % Die Repair Machinist ID Chloride Carbon Dioxide Anion Gap BUN Creatinine GFR Calculation Calculated Osmolal ity Lactic Acid Lactic Acid (Sepsi s) 1.5 (0.5-2.2) mmol/L Lactate (0.5-2.2) mmol/L Calcium Ferritin Total Bilirubin AST ALT Alkaline Phosphata se Troponin T Baselin e Troponin T 120 Min [place] 10.19 (0-15) ng/L Delta Troponin T -0.81 L (0-10) ABS# NT-Pro-B Natriuret Pep Total Protein Albumin Globulin Procalcitonin Imaging Data^: CXR: Attestation: I personally reviewed and interpreted this imaging study as follows: Radiologist's impression: [place] [id number] ReportSigned Patient: Arley Bhatt #: [id number]: 2Acct#:[id number]/Sex: 60 / MADM Date: 04/26/21Loc: ERRoom/Bed:Attending Dr: Ordering Provider/Ordering MD: Raphael Mendez Date of Service: 04/26/21 Procedure(s): XR chest 1V portable [id number] Accession Number(s): [id number] Report Number: [id number] PROCEDURE INFORMATION: Exam: XR Chest Exam date and time: 04/26/2021 9:25 AM Age: 60 years old Clinical indication: Shortness of breath; Additional info: SOB TECHNIQUE: Imaging protocol: XR of the chest. Views: 1 view. COMPARISON: CR XR chest 1V portable [id number] 04/21/2021 9:12 AM FINDINGS: Lungs: Patchy diffuse interstitial and alveolar airspace disease most pronounced in the perihilar regions and lung bases. Edema and/or pneumonia. Pleural spaces: Unremarkable. No pleural effusion. No pneumothorax. Heart/Mediastinum: Unremarkable. No cardiomegaly. Bones/joints: Unremarkable. XR/XR chest 1V portable [id number] IMPRESSION: Patchy diffuse interstitial and alveolar airspace disease most pronounced in the perihilar regions and lung bases. Edema and/or pneumonia. Likely infectious.Covid within the differential diagnosis and of concern. Dictated By:Douglas Montero MDSigned By:Douglas Montero MDSigned Date/Time:04/26/21 1146DD/ 1144 CTA Chest: Attestation: I personally reviewed and interpreted this imaging study as follows: Radiologist's impression: [address] [id number] Scan ReportSigned Patient: Arley Bhatt RUnit #: [id number]: 1960cct#:[id number]/Sex: 60 / MADM Date: 04/26/21Loc: ERRoom/Bed:Attending Dr: Ordering Provider/Ordering MD: Raphael Mendez Date of Service: 04/26/21 Procedure(s): CT angio chest PE protcl [id number] Accession Number(s): [id number] Report Number: [id number] PROCEDURE INFORMATION: Exam: CTA Chest With Contrast Exam date and time: 04/26/2021 11:55 AM Age: 60 years old Clinical indication: Shortness of breath; Additional info: SOB TECHNIQUE: Imaging protocol: Computed tomographic angiography of the chest with contrast. 3D rendering (Not supervised by radiologist): MIP and/or 3D reconstructed images were created by the technologist. Radiation optimization: All CT scans at this facility use at least one of these dose optimization techniques: automated exposure control; mA and/or kV adjustment per patient size (includes targeted exams where dose is matched to clinical indication); or iterative reconstruction. Contrast material: OMNI 350; Contrast volume: 79 ml; Contrast route: INTRAVENOUS (IV); COMPARISON: CR (CHEST, ) 04/26/2021 9:31 AM RADIATION DOSE METRICS: Total DLP (mGy-cm): 566.76 FINDINGS: Pulmonary arteries: There is no pulmonary embolus. Aorta: Unremarkable. No aortic aneurysm. No aortic dissection. Lungs: Extensive bilateral subpleural rounded ground-glass and airspace opacities are noted in the lungs concerning for pneumonic infiltrates especially COVID-19 pneumonia. There is crazy paving in the lungs. There is sparing of the lung parenchyma immediately adjacent to the erika and no significant vascular congestion or CHF is identified. Pleural spaces: Unremarkable. No pneumothorax. No pleural effusion. Heart: The heart is enlarged. There is borderline cardiomegaly. Mediastinal space: A small hiatal hernia is present. Lymph nodes: There is a 1.2 cm short axis right hilar lymph node. No pathologic axillary, mediastinal or left hilar adenopathy. Liver: There is a diffuse decrease in hepatic parenchymal density, consistent with fatty infiltration. Bones/joints: Old right rib fracture deformities are noted. No acute bony abnormality. Soft tissues: Unremarkable. CT/CT angio chest PE protcl [id number] IMPRESSION: 1. There is no pulmonary embolus. 2. Extensive bilateral subpleural rounded ground-glass and airspace opacities are noted in the lungs concerning for pneumonic infiltrates especially COVID-19 pneumonia. Radiation Dose CTDIVOL = (mGy): DLP = 566.76 (mGy-cm) Dictated By:Timoteo Yung By:Timoteo Yung Date/Time:04/26/211434DD/ 143 Discharge Plan Discharge Patient Disposition: Admitted As Inpatient Admit Provider: Davide Mata Clinical Impression: COVID-19 Condition: Stable Coding Level of Care Code ED Newspaper Stuffer for Chg Fwd Exam Comprehensive Documented by User: Sami Palomo MD 04/26/21 16:41 HPI - SOB/Dyspnea General: Chief Complaint: Shortness of Breath/Dyspnea Stated Complaint: SOB Time Seen by Provider: 04/26/21 09:12 PFSH ED PFSH: Medical History COVID-19 Diagnosed on 04.20.21 Hypertension Surgical History No pertinent past surgical history Social History Smoking and tobacco status: never smoked Alcohol intake: current Substance/Drug Use: never Course Vital Signs: Vital signs: Vital Signs Temperature 98.4 F 04/27/21 04:00 Pulse Rate 60 04/27/21 06:45 Respiratory Rate 20 H 04/27/21 04:00 Blood Pressure 138/82 04/27/21 04:00 Pulse Oximetry 91 04/27/21 04:00 MDM - SOB/Dyspnea MDM Narrative: Medical decision making narrative: I took over care of this patient from Mr. Mendez. The patient is on a high flow nasal cannula and is suffering from Covid. He is oxygenating well on that and will be admitted to the floor. Discussed with Dr. Mata who accepts for admission Lab Data: Labs: Lab Results 04/26/21 04/26/21 04/26/21 Range/Units 09:53 10:05 10:05 WBC 12.2 H (4.0-10.0) 10^3/ uL RBC 5.27 (4.1-5.3) 10^6/u L Hgb 15.9 (11.7-16.6) g/dL Hct 46.1 (42.0-52.0) % MCV 87.5 (80-94) fL MCH 30.2 (28.0-34.0) pg MCHC 34.5 (30.0-36.0) g/dL RDW 12.6 (12.1-15.1) % Plt Count 248 (130-400) 10^3/c mm MPV 10.4 (7.4-10.4) fL Neut % (Auto) 86.8 % Lymph % (Auto) 7.3 % Whitley % (Auto) 3.5 % Eos % (Auto) 0.0 % Baso % (Auto) 0.2 % Neut # (Auto) 10.56 H (1.8-7.7) 10^3/u L Lymph # (Auto) 0.9 (0.8-4.8) 10^3/u L Whitley # (Auto) 0.4 (0.2-0.9) 10^3/u L Eos # (Auto) 0.0 (0.0-0.8) 10^3/u L Baso # (Auto) 0.0 (0.0-0.1) 10^3/u L Nucleated RBC % (a uto) 0 % Nucleated RBCs # 0.0 /100WBC D-Dimer (0-0.59) ug/mIFE U Specimen Type Arterial Sample Site Brachial, left ABG pH 7.64 H* (7.35-7.45) ABG pCO2 20.3 L (35-45) mmHg ABG pO2 42.6 L (80.0-100.0) mmH g ABG HCO3 22.1 (22-26) mmol/L ABG O2 Saturation 87.3 ABG Base Excess 3.7 H (-2.0-2.0) mmol/ L Ezra Test Pos A-a O2 Gradient 24.5 H (5-10) mmHg Hematocrit 49.0 (42-52) % Hgb O2 Saturation 85.9 L (95-100) % Carboxyhemoglobin 0.9 (0.4-20.1) %THgb Methemoglobin 0.7 (0.4-1.5) % Total Hemoglobin 16.0 (14-18) g/dL Sodium 132.0 Cancelled (131-143) mmol/L Potassium 3.7 Cancelled (3.5-5.0) mmol/L Glucose 100.0 Cancelled (70-115) mg/dL Ionized Calcium 1.1 (1.1-1.4) mmol/L O2 Delivery Device Nc O2 Liters/Min 4.0 % FiO2 36.0 % Die Repair Machinist ID Cak Chloride Cancelled Carbon Dioxide Cancelled Anion Gap Cancelled BUN Cancelled Creatinine Cancelled GFR Calculation Cancelled Calculated Osmolal ity Cancelled Lactic Acid Lactic Acid (Sepsi s) (0.5-2.2) mmol/L Lactate (0.5-2.2) mmol/L Calcium Cancelled Ferritin Cancelled Total Bilirubin Cancelled AST Cancelled ALT Cancelled Alkaline Phosphata se Cancelled Troponin T Baselin e Troponin T 120 Min [place] (0-15) ng/L Delta Troponin T (0-10) ABS# NT-Pro-B Natriuret Pep Cancelled Total Protein Cancelled Albumin Cancelled Globulin Cancelled Procalcitonin Cancelled 04/26/21 04/26/21 04/26/21 Range/Units 10:05 10:05 10:58 WBC (4.0-10.0) 10^3/ uL RBC (4.1-5.3) 10^6/u L Hgb (11.7-16.6) g/dL Hct (42.0-52.0) % MCV (80-94) fL MCH (28.0-34.0) pg MCHC (30.0-36.0) g/dL RDW (12.1-15.1) % Plt Count (130-400) 10^3/c mm MPV (7.4-10.4) fL Neut % (Auto) % Lymph % (Auto) % Whitley % (Auto) % Eos % (Auto) % Baso % (Auto) % Neut # (Auto) (1.8-7.7) 10^3/u L Lymph # (Auto) (0.8-4.8) 10^3/u L Whitley # (Auto) (0.2-0.9) 10^3/u L Eos # (Auto) (0.0-0.8) 10^3/u L Baso # (Auto) (0.0-0.1) 10^3/u L Nucleated RBC % (a uto) % Nucleated RBCs # /100WBC D-Dimer 4.63 H (0-0.59) ug/mIFE U Specimen Type Sample Site ABG pH (7.35-7.45) ABG pCO2 (35-45) mmHg ABG pO2 (80.0-100.0) mmH g ABG HCO3 (22-26) mmol/L ABG O2 Saturation ABG Base Excess (-2.0-2.0) mmol/ L Ezra Test A-a O2 Gradient (5-10) mmHg Hematocrit (42-52) % Hgb O2 Saturation (95-100) % Carboxyhemoglobin (0.4-20.1) %THgb Methemoglobin (0.4-1.5) % Total Hemoglobin (14-18) g/dL Sodium (131-143) mmol/L Potassium (3.5-5.0) mmol/L Glucose (70-115) mg/dL Ionized Calcium (1.1-1.4) mmol/L O2 Delivery Device O2 Liters/Min % FiO2 % Die Repair Machinist ID Chloride Carbon Dioxide Anion Gap BUN Creatinine GFR Calculation Calculated Osmolal ity Lactic Acid Cancelled Lactic Acid (Sepsi s) (0.5-2.2) mmol/L Lactate (0.5-2.2) mmol/L Calcium Ferritin Total Bilirubin AST ALT Alkaline Phosphata se Troponin T Baselin e Cancelled Troponin T 120 Min [place] (0-15) ng/L Delta Troponin T (0-10) ABS# NT-Pro-B Natriuret Pep Total Protein Albumin Globulin Procalcitonin 04/26/21 04/26/21 04/26/21 Range/Units 10:58 10:58 10:58 WBC (4.0-10.0) 10^3/ uL RBC (4.1-5.3) 10^6/u L Hgb (11.7-16.6) g/dL Hct (42.0-52.0) % MCV (80-94) fL MCH (28.0-34.0) pg MCHC (30.0-36.0) g/dL RDW (12.1-15.1) % Plt Count (130-400) 10^3/c mm MPV (7.4-10.4) fL Neut % (Auto) % Lymph % (Auto) % Whitley % (Auto) % Eos % (Auto) % Baso % (Auto) % Neut # (Auto) (1.8-7.7) 10^3/u L Lymph # (Auto) (0.8-4.8) 10^3/u L Whitley # (Auto) (0.2-0.9) 10^3/u L Eos # (Auto) (0.0-0.8) 10^3/u L Baso # (Auto) (0.0-0.1) 10^3/u L Nucleated RBC % (a uto) % Nucleated RBCs # /100WBC D-Dimer (0-0.59) ug/mIFE U Specimen Type Sample Site ABG pH (7.35-7.45) ABG pCO2 (35-45) mmHg ABG pO2 (80.0-100.0) mmH g ABG HCO3 (22-26) mmol/L ABG O2 Saturation ABG Base Excess (-2.0-2.0) mmol/ L Ezra Test A-a O2 Gradient (5-10) mmHg Hematocrit (42-52) % Hgb O2 Saturation (95-100) % Carboxyhemoglobin (0.4-20.1) %THgb Methemoglobin (0.4-1.5) % Total Hemoglobin (14-18) g/dL Sodium 132 L (131-143) mmol/L Potassium 3.9 (3.5-5.0) mmol/L Glucose 91 (70-115) mg/dL Ionized Calcium (1.1-1.4) mmol/L O2 Delivery Device O2 Liters/Min % FiO2 % Die Repair Machinist ID Chloride 96 L Carbon Dioxide 23 Anion Gap 16.9 BUN 16 Creatinine 0.8 GFR Calculation 99.3 Calculated Osmolal ity 275 L Lactic Acid Lactic Acid (Sepsi s) (0.5-2.2) mmol/L Lactate 2.1 (0.5-2.2) mmol/L Calcium 8.4 L Ferritin 2813 H Total Bilirubin 0.7 AST 36 ALT 79 H Alkaline Phosphata se 56 Troponin T Baselin e 11 Troponin T 120 Min [place] (0-15) ng/L Delta Troponin T (0-10) ABS# NT-Pro-B Natriuret Pep 117 Total Protein 6.5 L Albumin 3.2 L Globulin 3.3 Procalcitonin 0.06 04/26/21 04/26/21 Range/Units 12:50 12:50 WBC (4.0-10.0) 10^3/ uL RBC (4.1-5.3) 10^6/u L Hgb (11.7-16.6) g/dL Hct (42.0-52.0) % MCV (80-94) fL MCH (28.0-34.0) pg MCHC (30.0-36.0) g/dL RDW (12.1-15.1) % Plt Count (130-400) 10^3/c mm MPV (7.4-10.4) fL Neut % (Auto) % Lymph % (Auto) % [place] % (Auto) % Eos % (Auto) % Baso % (Auto) % Neut # (Auto) (1.8-7.7) 10^3/u L Lymph # (Auto) (0.8-4.8) 10^3/u L Whitley # (Auto) (0.2-0.9) 10^3/u L Eos # (Auto) (0.0-0.8) 10^3/u L Baso # (Auto) (0.0-0.1) 10^3/u L Nucleated RBC % (a uto) % Nucleated RBCs # /100WBC D-Dimer (0-0.59) ug/mIFE U Specimen Type Sample Site ABG pH (7.35-7.45) ABG pCO2 (35-45) mmHg ABG pO2 (80.0-100.0) mmH g ABG HCO3 (22-26) mmol/L ABG O2 Saturation ABG Base Excess (-2.0-2.0) mmol/ L Ezra Test A-a O2 Gradient (5-10) mmHg Hematocrit (42-52) % Hgb O2 Saturation (95-100) % Carboxyhemoglobin (0.4-20.1) %THgb Methemoglobin (0.4-1.5) % Total Hemoglobin (14-18) g/dL Sodium (131-143) mmol/L Potassium (3.5-5.0) mmol/L Glucose (70-115) mg/dL Ionized Calcium (1.1-1.4) mmol/L O2 Delivery Device O2 Liters/Min % FiO2 % [employer]in[employer] ID Chloride Carbon Dioxide Anion Gap BUN Creatinine GFR Calculation Calculated Osmolal ity Lactic Acid Lactic Acid (Sepsi s) 1.5 (0.5-2.2) mmol/L Lactate (0.5-2.2) mmol/L Calcium Ferritin Total Bilirubin AST ALT Alkaline Phosphata se Troponin T Baselin e Troponin T 120 Min [place] 10.19 (0-15) ng/L Delta Troponin T -0.81 L (0-10) ABS# NT-Pro-B Natriuret Pep Total Protein Albumin Globulin Procalcitonin Discharge Plan Discharge Patient Disposition: Admitted As Inpatient Admit Provider: Davide Mata Clinical Impression: COVID-19 Condition: Stable Coding Level of Care Code ED Newspaper Stuffer for Chg Fwd Exam Comprehensive
[2021-04-26 10:04] LABS: ABG PCO2 20.3 mmHg (35-45); Alveolar-Arterial Oxygen Gradi 24.5 mmHg (5-10); Base Excess ABG 3.7 mmol/L (-2.0-2.0); Blood Gas Allen Test Pos; Blood Gas Operator Identificat CAK; Blood Gas Sample Site Brachial, left; Blood Gas Sample Type Arterial; Carboxyhemoglobin 0.9 %THgb (0.4-20.1); HCO3 ABG 22.1 mmol/L (22-26); HGB O2 Sat 85.9 % (95-100); Ionized Calcium Level - ABG 1.1 mmol/L (1.1-1.4); Methemoglobin 0.7 % (0.4-1.5); Oxygen Device NC; Oxygen Saturation ABG 87.3; PO2 ABG 42.6 mmHg (80.0-100.0); Potassium Level - ABG 3.7 mmol/L (3.5-5.0)
[2021-04-26 10:05] LABS: ABG PH Result 7.64 (7.35-7.45)
[2021-04-26 10:31] LABS: Basophils % 0.2 %; Hematocrit 46.1 % (42.0-52.0); Hemoglobin 15.9 g/dL (11.7-16.6); Lymphocytes # 0.9 10^3/uL (0.8-4.8); Lymphocytes % 7.3 %; Mean Corpuscular HGB Conc 34.5 g/dL (30.0-36.0); Mean Corpuscular Hemoglobin 30.2 pg (28.0-34.0); Mean Corpuscular Volume 87.5 fL (80-94); Mean Platelet Volume 10.4 fL (7.4-10.4); Monocytes # 0.4 10^3/uL (0.2-0.9); Monocytes % 3.5 %; Neutrophils # 10.56 10^3/uL (1.8-7.7); Neutrophils % 86.8 %; Nucleated Red Blood Cells % 0 %; Platelet Count 248 10^3/cmm (130-400); Red Blood Count 5.27 10^6/uL (4.1-5.3); Red Cell Distribution Width 12.6 % (12.1-15.1); White Blood Count 12.2 10^3/uL (4.0-10.0)
[2021-04-26] MEDS: piperacillin-tazobactam 3.375 GM in sodium chloride 0.9% (plus) 100 ML IV (11:13)
[2021-04-26] MEDS: LORazepam 2 mg/mL INJ 1 mL 0.5 MG IVP (11:13)
--- NOTE | 2021-04-26 11:25 | ECG_ITS ---
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 Measurements Intervals [place] Rate: 88 P: 61 IA: 133 QRS: -1 QRSD: 91 T: 30 QT: 358 QTc: 434 Interpretive Statements SINUS RHYTHM Compared to ECG 04/21/2021 10:13:24 No significant changes Electronically Signed On 04-26-2021 20:19:26 CDT by Benito Calix M.D. [email or web address])[facility] infantsCellomics Technologymercy health [facility].[employer]/store/NU/[id number]/[id number] f
[2021-04-26 11:47] LABS: Lactate (Lactic Acid level) 2.1 mmol/L (0.5-2.2)
[2021-04-26 11:49] LABS: Troponin(5th) Baseline 11 ng/L (0-15)
[2021-04-26 11:52] LABS: D Dimer 4.63 ug/mIFEU (0-0.59)
--- NOTE | 2021-04-26 11:55 | CTR_ITS ---
PROCEDURE INFORMATION: Exam: CTA Chest With Contrast Exam date and time: 04/26/2021 11:55 AM Age: 60 years old Clinical indication: Shortness of breath; Additional info: SOB TECHNIQUE: Imaging protocol: Computed tomographic angiography of the chest with contrast. 3D rendering (Not supervised by radiologist): MIP and/or 3D reconstructed images were created by the technologist. Radiation optimization: All CT scans at this facility use at least one of these dose optimization techniques: automated exposure control; mA and/or kV adjustment per patient size (includes targeted exams where dose is matched to clinical indication); or iterative reconstruction. Contrast material: OMNI 350; Contrast volume: 79 ml; Contrast route: INTRAVENOUS (IV); COMPARISON: CR (CHEST, ) 04/26/2021 9:31 AM RADIATION DOSE METRICS: Total DLP (mGy-cm): 566.76 FINDINGS: Pulmonary arteries: There is no pulmonary embolus. Aorta: Unremarkable. No aortic aneurysm. No aortic dissection. Lungs: Extensive bilateral subpleural rounded ground-glass and airspace opacities are noted in the lungs concerning for pneumonic infiltrates especially COVID-19 pneumonia. There is crazy paving in the lungs. There is sparing of the lung parenchyma immediately adjacent to the erika and no significant vascular congestion or CHF is identified. Pleural spaces: Unremarkable. No pneumothorax. No pleural effusion. Heart: The heart is enlarged. There is borderline cardiomegaly. Mediastinal space: A small hiatal hernia is present. Lymph nodes: There is a 1.2 cm short axis right hilar lymph node. No pathologic axillary, mediastinal or left hilar adenopathy. Liver: There is a diffuse decrease in hepatic parenchymal density, consistent with fatty infiltration. Bones/joints: Old right rib fracture deformities are noted. No acute bony abnormality. Soft tissues: Unremarkable. CT/CT angio chest PE protcl [id number] IMPRESSION: 1. There is no pulmonary embolus. 2. Extensive bilateral subpleural rounded ground-glass and airspace opacities are noted in the lungs concerning for pneumonic infiltrates especially COVID-19 pneumonia. Radiation Dose CTDIVOL = (mGy): DLP = 566.76 (mGy-cm)
[2021-04-26 11:59] LABS: NT Pro B Type Natriuretic Pept 117 pg/mL (0-125); Procalcitonin 0.06 ng/mL (0-0.5)
[2021-04-26 12:10] LABS: Alanine Aminotransferase 79 U/L (0-41); Albumin Level 3.2 g/dL (3.5-5.2); Alkaline Phosphatase 56 IU/L (40-130); Aspartate Amino Transferase 36 U/L (0-40); Blood Urea Nitrogen 16 mg/dL (6-20); Calcium 8.4 mg/dL (8.5-10.5); Carbon Dioxide 23 mmol/L (22-29); Chloride 96 mmol/L (98-107); Globulin 3.3 g/dL (1.3-4.6); Glomerular Filtration Rate 99.3 mL/min (90-130); Glucose 91 mg/dL (65-115); Osmolality Calculated 275 mOsm/kg (285-295); Sodium 132 mmol/L (136-145); Total Bilirubin 0.7 mg/dL (0.15-1.2); Total Protein 6.5 g/dL (6.6-8.7)
[2021-04-26 12:17] LABS: Anion Gap 16.9 (5-19); Potassium 3.9 mmol/L (3.5-5.1)
[2021-04-26 12:30] LABS: Ferritin 2813 ng/mL (30-400)
[2021-04-26] MEDS: vancomycin 1,500 MG/300 ML PIGGYBACK 200 MG IV (12:32)
[2021-04-26 13:08] LABS: Reflex Lactate Order REFLEX LACTIC ORDERD
[2021-04-26 13:23] LABS: Lactic Acid level (Lactate) 1.5 mmol/L (0.5-2.2)
[2021-04-26 13:24] LABS: Troponin 5 2HR 10.19 ng/L (0-15)
[2021-04-26 13:25] LABS: Troponin 5 2HR Delta -0.81 ABS# (0-10)
[2021-04-26] MEDS: iohexol 350 mg/mL 100 mL Btl IV (14:09)
--- NOTE | 2021-04-26 15:25 | ECG_ITS ---
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 Measurements Intervals [place] Rate: 82 P: 58 GA: 138 QRS: 0 QRSD: 93 T: 21 QT: 367 QTc: 430 Interpretive Statements SINUS RHYTHM WARNING: DATA QUALITY MAY AFFECT INTERPRETATION Compared to ECG 04/26/2021 11:14:40 No significant changes Electronically Signed On 04-26-2021 20:22:16 CDT by Benito Calix M.D. [email or web address] Networksoch regional medical centerenrich-inmercy health urbana hospitalSnap Technologies/store/OM/[id number]/ecg/[id number]
--- NOTE | 2021-04-26 17:07 | P.HP_ITS ---
Providers/Chief Complaint Admitting Physician: Davide Mata Chief Complaint: SOB History of Present Illness Arley Bhatt is a 60 year old male with past medical history of hypertension and recent diagnosis of COVID-19 on 04/20 ER visit, he was discharged home however returned on 04/21 during which time he was noted to be hypoxic requiring dexamethasone and 2L of home oxygen at discharge from ER, who again returned today with increasing respiratory distress. Upon arrival today his initial laboratory work up showed a WBC of 12.2, hgb of 15.9, hct of 46.1 and a plt of 248. Sodium of 132, potassium of 3.9, chloride of 96, bicarb of 23, BUN of 16, creatinine of 0.8, lactate acid of 2.1 Procalcitonin of 0.06. ABG was noted to be 7.64, pCO2 of 20.3 pO2 of 42.6, HCO3 of 22.1 on 4L of o2 via NC. He was transitioned to HFNC. D-dimer was also noted to be elevated at 4.63. CTA chest was then performed which showed no PE however extensive bilateral subpleural rounded ground-glass and airspace opacities are noted in the lungs concerning for pneumonic infiltrates especially COVID-19 pneumonia. In ER patient was given vancomycin and zosyn prior to admission to medicine Review of Systems General: Reports: 10 or more systems reviewed and unremarkable except in HPI and below Medications/Allergies Home Medications Medication Instructions Recorded Confirmed Last Taken Type Vitamin C 1 tab PO DAILY 04/20/21 04/26/21 04/25/21 History Vitamin D3 1 tab PO DAILY 04/20/21 04/26/21 04/25/21 History acetaminophen [Tylenol Extra 1,000 mg PO PRN 04/20/21 04/26/21 04/20/21 08:00 History Strength] ibuprofen 600 mg PO PRN 04/20/21 04/26/21 04/20/21 12:00 History lisinopril 10 mg PO QAM 04/20/21 04/26/21 04/25/21 History sertraline 50 mg PO QAM 04/20/21 04/26/21 04/25/21 History triamcinolone acetonide [Nasacort] 2 spray INTRANASAL BID 04/20/21 04/26/21 04/25/21 History zinc 1 tab PO DAILY 04/20/21 04/26/21 04/25/21 History dexamethasone 6 mg PO DAILY #7 tab 04/21/21 04/26/21 04/25/21 Rx Allergies Allergy/AdvReac Type Severity Reaction Status Date / Time No Known Allergies Allergy Unverified 04/20/21 15:58 PFSH Acute PFSH: Medical History (Updated 04/26/21 @ 17:24 by Davide Mata MD) COVID-19 Diagnosed on 04.20.21 Hypertension Surgical History (Updated 04/26/21 @ 17:24 by Davide Mata MD) No pertinent past surgical history Social History (Updated 04/26/21 @ 17:18 by Davide Mata MD) Smoking and tobacco status: never smoked Alcohol intake: current Substance/Drug Use: never Vitals/I&O/Wt Last Vital Signs Temp 101.9 F H 04/26/21 16:32 Pulse 76 04/26/21 16:32 Resp 20 H 04/26/21 16:32 BP 147/82 04/26/21 16:32 Pulse Ox 92 04/26/21 16:32 04/26/21 04/26/21 04/26/21 06:59 14:59 22:59 Intake Total 400 / 400 Balance 400 / 400 Weight last 48 hrs Weight 102.058 kg Physical Exam Narrative: EXAM NARRATIVE: General : moderate respiratory distress, on HFNC HEENT : Grossly unremarkable CVS: NSR Chest : Labored respiration ABD; Non distended Ext; no edema Data : 04/26/21 10:05 04/26/21 10:58 Micro: Microbiology 04/26/21 11:00 Blood Culture - Preliminary Blood SPECIMEN COLLECTED 04/26/21 10:58 Blood Culture - Preliminary Blood SPECIMEN COLLECTED A&P Assessment and plan (1) Acute hypoxemic respiratory failure due to COVID-19: Diagnosed on 04/20 Decadron and home o2 on 04/21 Today noted to be in respiratory distress with P02 of 42.6 Started on heated high flow Risk vs benefit- Remdesivir 200 mg IV x 1, then 100 mg IV daily x 4 day Procalcitonin negative - s/p Vancomycin/Zosyn in ER Will continue Levaquin 750 mg IV daily Wean HFNC as tolerated Consider pulmonary consult D-dimer elevated however CTA negative Ferritin, CRP, in am Status: Acute (2) Hypertension: Resume Pankaj regimen Status: Acute (3) DVT prophylaxis: Lovenox 40 mg SQ daily Status: Acute Attestations Medical Necessity Statement*: Will require over 2 midnight stay in hospital for eval and treatment of covid -19 pneumonia Time Spent in Patient Care: Greater than 35 minutes (>than 50% of time spent in counselling and/or direct pt care on unit) . Coding Level of Care Code Acute Sculpture Conservator for Tequila Baez Diagnoses Acute hypoxemic respiratory failure due to COVID-19 U07.1; J96.01 Hypertension I10 DVT prophylaxis Z29.9
[2021-04-26] MEDS: remdesivir 200 MG in sodium chloride 0.9% (100 ml) 100 ML 100 MG IV (17:49)
[2021-04-26] MEDS: dexamethasone 4 mg/mL INJ 6 MG IVP (17:49)
[2021-04-26] MEDS: enoxaparin 40 mg/0.4 mL Syringe SUBCUT (17:49)
[2021-04-26 18:02] LABS: Troponin 5 6HR 9.21 ng/L (0-15)
[2021-04-26 18:34] LABS: Troponin 5 6HR Delta -1.79 ng/L (0-12)
[2021-04-27] VITALS (89 sets, daily range): BP systolic 85–146; BP diastolic 51–87; PULSE 56–78; RESP 13–33; TEMP 36.4–37.2; O2SAT 85–99
[2021-04-27 06:45] LABS: Basophils % 0.2 %; Hematocrit 43.9 % (42.0-52.0); Hemoglobin 15.2 g/dL (11.7-16.6); Lymphocytes # 0.7 10^3/uL (0.8-4.8); Lymphocytes % 6.1 %; Mean Corpuscular HGB Conc 34.6 g/dL (30.0-36.0); Mean Corpuscular Volume 86.8 fL (80-94); Monocytes # 0.3 10^3/uL (0.2-0.9); Monocytes % 2.8 %; Neutrophils # 10.12 10^3/uL (1.8-7.7); Neutrophils % 88.6 %; Nucleated Red Blood Cells % 0 %; Platelet Count 251 10^3/cmm (130-400); Red Blood Count 5.06 10^6/uL (4.1-5.3); Red Cell Distribution Width 12.1 % (12.1-15.1); White Blood Count 11.4 10^3/uL (4.0-10.0)
[2021-04-27 07:19] LABS: Procalcitonin 0.39 ng/mL (0-0.5)
[2021-04-27 07:39] LABS: Alanine Aminotransferase 69 U/L (0-41); Albumin Level 3.1 g/dL (3.5-5.2); Alkaline Phosphatase 62 IU/L (40-130); Anion Gap 17.1 (5-19); Aspartate Amino Transferase 34 U/L (0-40); Blood Urea Nitrogen 17 mg/dL (6-20); Calcium 8.1 mg/dL (8.5-10.5); Carbon Dioxide 22 mmol/L (22-29); Chloride 98 mmol/L (98-107); Globulin 3.2 g/dL (1.3-4.6); Glomerular Filtration Rate 115.8 mL/min (90-130); Glucose 128 mg/dL (65-115); Magnesium 2.2 mg/dL (1.7-2.3); Osmolality Calculated 279 mOsm/kg (285-295); Potassium 4.1 mmol/L (3.5-5.1); Sodium 133 mmol/L (136-145); Total Bilirubin 0.7 mg/dL (0.15-1.2); Total Protein 6.3 g/dL (6.6-8.7)
[2021-04-27] MEDS: pantoprazole DR 40 mg Tablet PO (08:11)
--- NOTE | 2021-04-27 16:03 | P.PN_ITS ---
Subjective Subjective: Interval history: Patient was seen and examined this morning continues to complain of worsening shortness of breath, as well as cough. Medications: Reviewed: Yes Vitals/I&O/Wt Last Vital Signs Temp 98.5 F 04/27/21 12:00 Pulse 78 04/27/21 15:42 Resp 20 H 04/27/21 15:42 BP 125/78 04/27/21 12:00 Pulse Ox 91 04/27/21 15:42 04/27/21 04/27/21 04/27/21 06:59 14:59 22:59 Intake Total 580 / 580 Output Total 0 / 200 375 / 375 Balance 0 / 540 205 / 205 Weight last 48 hrs Weight 102.058 kg Physical Exam Const: COMMON NORMALS: patient oriented x3 HENMT: COMMON NORMALS: normocephalic, atraumatic, hearing grossly normal bilaterally and external ears normal HEAD & SCALP: normocephalic and atraumatic EXTERNAL EAR: Yes external ears normal Eye: COMMON NORMALS: no scleral icterus GENERAL EYE: appearance normal, both eyes and all related structures Chest: COMMONS NORMALS: normal inspection of the chest and normal palpation of entire chest wall CHEST: Yes Symmetrical chest wall rise Resp: OTHER: Diminished air entry bilaterally Cardio: COMMON NORMALS: regular rate, regular rhythm, S1 normal heart sound present, S2 normal heart sound present, No gallops present (Cardio), No murmurs present (Cardio), No rub (Cardio) and Peripheral pulses 2+ throughout RATE: regular rate RHYTHM: regular rhythm HEART SOUNDS: S1 normal heart sound present and S2 normal heart sound present PERIPHERAL PULSES: Peripheral pulses 2+ throughout GI: COMMON NORMALS: Normal to inspection, nondistended, normoactive bowel sounds present, Soft to palpation, non-tender, No hepatosplenomegaly present and no masses AUSCULTATION: Yes normoactive bowel sounds PALPATION: Yes Soft to palpation and Yes No hepatosplenomegaly present RECTAL EXAM: Yes deferred Extremity: COMMON NORMALS: no clubbing, cyanosis or edema and no pedal edema Neuro: COMMON NORMALS: patient oriented x3 Data : 04/27/21 05:48 04/27/21 05:48 Micro: Microbiology 04/26/21 11:00 Blood Culture - Preliminary Blood NEGATIVE TO DATE 04/26/21 10:58 Blood Culture - Preliminary Blood NEGATIVE TO DATE A&P Assessment and plan (1) Acute hypoxemic respiratory failure due to COVID-19: Diagnosed on 04/20 Decadron and home o2 on 04/21 Today noted to be in respiratory distress with P02 of 42.6 Started on heated high flow Risk vs benefit- Remdesivir 200 mg IV x 1, then 100 mg IV daily x 4 day Procalcitonin negative - s/p Vancomycin/Zosyn in ER Will continue Levaquin 750 mg IV daily Wean HFNC as tolerated Consider pulmonary consult D-dimer elevated however CTA negative Ferritin, CRP, in am Status: Acute (2) Hypertension: Resume Pankaj regimen Status: Acute (3) DVT prophylaxis: Lovenox 40 mg SQ daily Status: Acute Attestations Medical Necessity Statement*: Patient is to be in hospital for management of respiratory failure. Coding Level of Care Code Acute Core Drilling Supervisor for Tequila Baez Diagnoses Acute hypoxemic respiratory failure due to COVID-19 U07.1; J96.01 Hypertension I10 DVT prophylaxis Z29.9
[2021-04-27] MEDS: dexamethasone 4 mg/mL INJ 6 MG IVP (17:51)
[2021-04-27] MEDS: enoxaparin 40 mg/0.4 mL Syringe SUBCUT (17:51)
--- NOTE | 2021-04-27 17:53 | PC.NURSE ---
1725 Pt arrived to ICU with nurse and RT at bedside. On NRB, switched to HHFNC at 50L/75%. Assessment completed. Lungs sounds CTA, diminished B bases. AAOx4, denies any pain. PIV x 2 to LUE. Both flush freely. Pt has clothes on and has his phone with him. Uses urinal for elimination. Connected to ICU monitor upon arrival, NSR to sinus hari. O2 sat 88-90%. 1800 All 1800 meds given, remdesevir infusing. PT education provided r/t meds. Will monitor.
[2021-04-27] MEDS: remdesivir 100 MG in sodium chloride 0.9% (100 ml) 100 ML IV (17:54)
[2021-04-27] MEDS: levofloxacin-dextrose 5 % 750 MG/150 ML PREMIX 100 MG IV (20:38)
[2021-04-28] VITALS (99 sets, daily range): BP systolic 99–161; BP diastolic 46–99; PULSE 52–92; RESP 13–36; TEMP 36.1–36.8; O2SAT 82–95
[2021-04-28] MEDS: ALPRAZolam 0.5 mg Tablet PO ×2 (01:55→20:43)
--- NOTE | 2021-04-28 06:00 | XRR_ITS ---
PROCEDURE INFORMATION: Exam: XR Chest Exam date and time: 04/28/2021 6:00 AM Age: 60 years old Clinical indication: Dyspnea; Additional info: Pna TECHNIQUE: Imaging protocol: XR of the chest. Views: 1 view. COMPARISON: CR (CHEST, ) 04/26/2021 9:31 AM FINDINGS: Lungs: No significant change in the patchy airspace opacities. Interval appearance of the suggestion of subsegmental atelectasis in the right mid lung. Pleural spaces: No interval pneumothorax or large pleural effusion. Heart/Mediastinum: Suspicion of interval slight increase in the heart size, but still no cardiomegaly. Bones/joints: No acute bony disease. XR/XR chest 1V portable [id number] IMPRESSION: Suspicion of interval slight atelectasis in the right mid lung. No significant change in the airspace infiltrates in the lungs. Questionable interval slight increase in the heart size.
[2021-04-28 06:58] LABS: Basophils % 0.2 %; Eosinophils % 0.1 %; Hemoglobin 15.2 g/dL (11.7-16.6); Lymphocytes # 0.6 10^3/uL (0.8-4.8); Mean Corpuscular HGB Conc 35.3 g/dL (30.0-36.0); Mean Corpuscular Hemoglobin 30.3 pg (28.0-34.0); Mean Corpuscular Volume 85.7 fL (80-94); Mean Platelet Volume 10.8 fL (7.4-10.4); Monocytes # 0.4 10^3/uL (0.2-0.9); Monocytes % 2.8 %; Neutrophils % 90.5 %; Nucleated Red Blood Cells % 0 %; Platelet Count 293 10^3/cmm (130-400); Red Blood Count 5.02 10^6/uL (4.1-5.3); Red Cell Distribution Width 12.1 % (12.1-15.1); White Blood Count 13.9 10^3/uL (4.0-10.0)
--- NOTE | 2021-04-28 07:02 | PC.NURSE ---
Addendum entered by Camilo Odell RN 04/28/21 08:18: 50L/80% on HHFNC Original Note: Report received, assessment completed. Pt AAOx4. HFNC in use, 50L/75%, O2 sat 88% upon entrance into room. Pt lying in bed with eyes closed, awakens easily. Lung sounds CTA, diminished B bases. Able to make all needs known. PIVx2, C/D/I. Will monitor.
[2021-04-28 07:19] LABS: D Dimer 4.46 ug/mIFEU (0-0.59)
[2021-04-28 07:21] LABS: Alanine Aminotransferase 66 U/L (0-41); Albumin Level 2.9 g/dL (3.5-5.2); Alkaline Phosphatase 71 IU/L (40-130); Aspartate Amino Transferase 41 U/L (0-40); Blood Urea Nitrogen 18 mg/dL (6-20); C Reactive Protein 153.7 mg/L (0.0-4.9); Calcium 8.3 mg/dL (8.5-10.5); Carbon Dioxide 23 mmol/L (22-29); Chloride 98 mmol/L (98-107); Globulin 3.1 g/dL (1.3-4.6); Glomerular Filtration Rate 115.8 mL/min (90-130); Glucose 120 mg/dL (65-115); Osmolality Calculated 279 mOsm/kg (285-295); Sodium 133 mmol/L (136-145); Total Bilirubin 0.5 mg/dL (0.15-1.2)
[2021-04-28 07:24] LABS: Anion Gap 16.6 (5-19); Potassium 4.6 mmol/L (3.5-5.1)
[2021-04-28] MEDS: pantoprazole DR 40 mg Tablet PO (07:45)
[2021-04-28 07:46] LABS: Ferritin 4518 ng/mL (30-400)
--- NOTE | 2021-04-28 07:58 | ECG_ITS ---
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 Measurements Intervals [place] Rate: 62 P: 55 NE: 150 QRS: -5 QRSD: 104 T: 20 QT: 433 QTc: 440 Interpretive Statements SINUS RHYTHM WARNING: DATA QUALITY MAY AFFECT INTERPRETATION Compared to ECG 04/26/2021 15:06:04 No significant changes Electronically Signed On 04-28-2021 16:50:02 CDT by Rosa Muhammad M.D. [email or web address]/store/[id number]
[2021-04-28 08:09] LABS: Erythrocyte Sedimentation Rate 55 mm/hr (0-10)
--- NOTE | 2021-04-28 08:19 | PC.NURSE ---
Pt insisted on eating meal lying n bed. Encouraged to get up to side of bed or recliner. Will attempt after breakfast.
--- NOTE | 2021-04-28 08:31 | PC.NURSE ---
Spoke with pt and encouraged him to get up to chair again, he agreed to sit upright in bed. Pt education provided r/t incentive spirometry use. RT to provide pt with IS and further education. Pt verbalizes understanding
[2021-04-28] MEDS: sertraline 50 mg Tablet PO (08:55)
[2021-04-28 09:34] LABS: ABG PCO2 27.6 mmHg (35-45); ABG PH Result 7.47 (7.35-7.45); Alveolar-Arterial Oxygen Gradi 8.3 mmHg (5-10); Arterial Blood Gas Hematocrit 51.5 % (42-52); Base Excess ABG -1.7 mmol/L (-2.0-2.0); Blood Gas Allen Test Pos; Blood Gas Sample Type Arterial; Carboxyhemoglobin 0.5 %THgb (0.4-20.1); HCO3 ABG 20.3 mmol/L (22-26); HGB O2 Sat 86.6 % (95-100); Ionized Calcium Level - ABG 1.2 mmol/L (1.1-1.4); Methemoglobin 0.8 % (0.4-1.5); Oxygen Saturation ABG 87.7; PO2 ABG 51.6 mmHg (80.0-100.0); Potassium Level - ABG 3.9 mmol/L (3.5-5.0); Total Hemoglobin 16.8 g/dL (14-18)
--- NOTE | 2021-04-28 09:35 | PC.CHAP ---
Pastoral Care Encounter/Spiritual Assessment Type of Contact [] Declined janitorial supervisor visit [] Patient/Family/Request visit [] Outpatient visit [] Follow-up visit [] Physician referral [] Code/Alert [x] Routine visit [] Staff referral [] Actively dying [] Patient sleeping [] Family support [] [] Out of room [] Palliative care [] [] Receiving care in room [] Pre-surgical visit [] Trauma [] Long length of stay [x] ICU visit [] Other: Relational/Emotional Strength [] Patient feels connected with others/family/visitors/staff [] Distress [] Loneliness/isolation [] Abandonment Spirituality of Patient [] Person of Reta [] Attends Cheondoism of their Reta [] Believes in Prayer [] Reads Bible or Scientologist materials [] There are Spiritual issues to be addressed Legal Practice Manager Interventions [x] Prayer [] Active listening [] Non-anxious presence [] Spiritual/emotional support [] Crisis/trauma care [] Spiritual counseling [] Bereavement support [] Provided bereavement packet [] Provided Bible/devotional materials [] Provided toy/stuffed animal, coloring book to patient or family member [] Provided Communion [] Anointing/[place] [] Salvation [x] Completed spiritual assessment [] Other: Impact on Illness or Injury [] Angry [] Fearful [] Anxious [] Often cries [] Exhaustion [] Unable to work [] Unable to attend mormon [] Unable to walk/stand [] Unable to read [] Unable to drive [] Unable to eat/drink [] Unable to sleep [] Unable to be with family [] Patient intubated [] Other: Summary Time spent with patient
[2021-04-28] MEDS: ipratropium-albuterol 3 mL Neb INHALATION ×2 (09:41→20:31)
--- NOTE | 2021-04-28 11:55 | PM.PN ---
Subjective Subjective: Interval history: Patient was seen and examined this morning continues to need high supplemental oxygen, patient was seen sitting in the chair for some time today in the morning. A.m. checks x-ray have been reviewed: Has not shown any marked significant improvement. Medications: Reviewed: Yes Vitals/I&O/Wt Last Vital Signs Temp 98.0 F 04/28/21 08:00 Pulse 66 04/28/21 10:56 Resp 22 H 04/28/21 10:56 BP 124/78 04/28/21 08:00 Pulse Ox 88 L 04/28/21 10:56 04/27/21 04/28/21 04/28/21 22:59 06:59 14:59 Intake Total 200 / 780 510 / 510 Output Total 275 / 650 850 / 1500 350 / 350 Balance -75 / 130 -850 / -720 160 / 160 Physical Exam Const: COMMON NORMALS: patient oriented x3 HENMT: COMMON NORMALS: normocephalic, atraumatic, hearing grossly normal bilaterally and external ears normal HEAD & SCALP: normocephalic and atraumatic EXTERNAL EAR: Yes external ears normal Eye: COMMON NORMALS: no scleral icterus GENERAL EYE: appearance normal, both eyes and all related structures Chest: COMMONS NORMALS: normal inspection of the chest and normal palpation of entire chest wall CHEST: Yes Symmetrical chest wall rise Resp: OTHER: Diminished air entry bilaterally Cardio: COMMON NORMALS: regular rate, regular rhythm, S1 normal heart sound present, S2 normal heart sound present, No gallops present (Cardio), No murmurs present (Cardio), No rub (Cardio) and Peripheral pulses 2+ throughout RATE: regular rate RHYTHM: regular rhythm HEART SOUNDS: S1 normal heart sound present and S2 normal heart sound present PERIPHERAL PULSES: Peripheral pulses 2+ throughout GI: COMMON NORMALS: Normal to inspection, nondistended, normoactive bowel sounds present, Soft to palpation, non-tender, No hepatosplenomegaly present and no masses AUSCULTATION: Yes normoactive bowel sounds PALPATION: Yes Soft to palpation and Yes No hepatosplenomegaly present RECTAL EXAM: Yes deferred Extremity: COMMON NORMALS: no clubbing, cyanosis or edema and no pedal edema Neuro: COMMON NORMALS: patient oriented x3 Data : 04/28/21 05:30 04/28/21 05:30 Micro: Microbiology 04/26/21 11:00 Blood Culture - Preliminary Blood NEGATIVE TO DATE 04/26/21 10:58 Blood Culture - Preliminary Blood NEGATIVE TO DATE A&P Assessment and plan (1) Acute hypoxemic respiratory failure due to COVID-19: Diagnosed on 04/20 Decadron and home o2 on 04/21 Today noted to be in respiratory distress with P02 of 42.6 Started on heated high flow Risk vs benefit- Remdesivir 200 mg IV x 1, then 100 mg IV daily x 4 day S/P 1 Dose of Tocilizumab Procalcitonin negative - s/p Vancomycin/Zosyn in ER Will continue Levaquin 750 mg IV daily Wean HFNC as tolerated Consider pulmonary consult D-dimer elevated however CTA negative Ferritin, CRP, in am Status: Acute (2) Hypertension: Resume Pankaj regimen Status: Acute (3) DVT prophylaxis: Lovenox 40 mg SQ daily Status: Acute Attestations Medical Necessity Statement*: Patient is to be in hospital for management of respiratory failure secondary to Covid pneumonia. Coding Level of Care Code Acute English Composition Teacher for Tequila Baez Diagnoses Acute hypoxemic respiratory failure due to COVID-19 U07.1; J96.01 Hypertension I10 DVT prophylaxis Z29.9
[2021-04-28] MEDS: FUROsemide 10 mg/mL SDV 2mL 20 MG IVP (12:13)
[2021-04-28 15:57] LABS: Blood Gas Operator Identificat BD
[2021-04-28] MEDS: dexamethasone 4 mg/mL INJ 6 MG IVP (17:16)
[2021-04-28] MEDS: remdesivir 100 MG in sodium chloride 0.9% (100 ml) 100 ML IV (17:16)
[2021-04-28] MEDS: enoxaparin 40 mg/0.4 mL Syringe SUBCUT (17:17)
[2021-04-28] MEDS: levofloxacin-dextrose 5 % 750 MG/150 ML PREMIX 100 MG IV (20:43)
[2021-04-29] VITALS (55 sets, daily range): BP systolic 81–141; BP diastolic 39–89; PULSE 57–101; RESP 14–37; TEMP 36.4–37; O2SAT 81–94
[2021-04-29 04:53] LABS: Basophils % 0.1 %; Hematocrit 45.3 % (42.0-52.0); Hemoglobin 15.7 g/dL (11.7-16.6); Lymphocytes # 0.5 10^3/uL (0.8-4.8); Lymphocytes % 2.9 %; Mean Corpuscular HGB Conc 34.7 g/dL (30.0-36.0); Mean Corpuscular Hemoglobin 30.3 pg (28.0-34.0); Mean Corpuscular Volume 87.3 fL (80-94); Mean Platelet Volume 10.2 fL (7.4-10.4); Monocytes # 0.4 10^3/uL (0.2-0.9); Monocytes % 2.7 %; Neutrophils # 14.24 10^3/uL (1.8-7.7); Neutrophils % 92.4 %; Nucleated Red Blood Cells % 0 %; Platelet Count 266 10^3/cmm (130-400); Red Blood Count 5.19 10^6/uL (4.1-5.3); Red Cell Distribution Width 12.5 % (12.1-15.1); White Blood Count 15.4 10^3/uL (4.0-10.0)
[2021-04-29 05:13] LABS: Alanine Aminotransferase 65 U/L (0-41); Alkaline Phosphatase 71 IU/L (40-130); Anion Gap 16.7 (5-19); Aspartate Amino Transferase 35 U/L (0-40); Blood Urea Nitrogen 19 mg/dL (6-20); C Reactive Protein 67.3 mg/L (0.0-4.9); Calcium 8.4 mg/dL (8.5-10.5); Carbon Dioxide 24 mmol/L (22-29); Chloride 98 mmol/L (98-107); Globulin 3.3 g/dL (1.3-4.6); Glomerular Filtration Rate 86.7 mL/min (90-130); Glucose 134 mg/dL (65-115); Osmolality Calculated 282 mOsm/kg (285-295); Potassium 4.7 mmol/L (3.5-5.1); Sodium 134 mmol/L (136-145); Total Bilirubin 0.4 mg/dL (0.15-1.2); Total Protein 6.3 g/dL (6.6-8.7)
[2021-04-29 05:29] LABS: Ferritin 3672 ng/mL (30-400)
[2021-04-29 05:33] LABS: D Dimer > 20.00 ug/mIFEU (0-0.59)
[2021-04-29 05:51] LABS: Erythrocyte Sedimentation Rate 38 mm/hr (0-10)
[2021-04-29] MEDS: pantoprazole DR 40 mg Tablet PO (09:02)
[2021-04-29] MEDS: sertraline 50 mg Tablet PO (09:02)
[2021-04-29] MEDS: ALPRAZolam 0.5 mg Tablet PO (09:02)
--- NOTE | 2021-04-29 10:01 | PC.CHAP ---
Pastoral Care Encounter/Spiritual Assessment Type of Contact [] Declined film composer visit [] Patient/Family/Request visit [] Outpatient visit [] Follow-up visit [] Physician referral [] Code/Alert [x] Routine visit [] Staff referral [] Actively dying [] Patient sleeping [] Family support [] [] Out of room [] Palliative care [] [x] Receiving care in room [] Pre-surgical visit [] Trauma [] Long length of stay [x] ICU visit [] Other: Relational/Emotional Strength [] Patient feels connected with others/family/visitors/staff [] Distress [] Loneliness/isolation [] Abandonment Spirituality of Patient [] Person of Reta [] Attends Methodist of their Reta [] Believes in Prayer [] Reads Bible or Restorationism materials [] There are Spiritual issues to be addressed Clinical Research Monitor Interventions [x] Prayer [] Active listening [] Non-anxious presence [] Spiritual/emotional support [] Crisis/trauma care [] Spiritual counseling [] Bereavement support [] Provided bereavement packet [] Provided Bible/devotional materials [] Provided toy/stuffed animal, coloring book to patient or family member [] Provided Communion [] Anointing/[place] [] Salvation [x] Completed spiritual assessment [] Other: Impact on Illness or Injury [] Angry [] Fearful [] Anxious [] Often cries [] Exhaustion [] Unable to work [] Unable to attend scientology [] Unable to walk/stand [] Unable to read [] Unable to drive [] Unable to eat/drink [] Unable to sleep [] Unable to be with family [] Patient intubated [] Other: Summary Time spent with patient
--- NOTE | 2021-04-29 11:52 | P.PN_ITS ---
Subjective Subjective: Interval history: Patient was seen and examined this morning in the last 24 hours there has been significant deterioration in his overall respiratory status, he has been extremely tachypneic and short of breath, interval development of subcutaneous emphysema pneumomediastinum as well as pneumopericardium, seen on x-ray and CT chest without contrast. Medications: Reviewed: Yes Vitals/I&O/Wt Last Vital Signs Temp 97.6 F 04/29/21 10:30 Pulse 66 04/29/21 11:00 Resp 20 H 04/29/21 11:00 BP 116/82 04/29/21 11:00 Pulse Ox 88 L 04/29/21 11:00 04/28/21 04/29/21 04/29/21 22:59 06:59 14:59 Intake Total 848 / 1718 240 / 240 Output Total 875 / 2100 200 / 2300 250 / 250 Balance -27 / -382 -200 / -582 -10 / -10 Physical Exam Const: COMMON NORMALS: patient oriented x3 HENMT: COMMON NORMALS: normocephalic, atraumatic, hearing grossly normal bilaterally and external ears normal HEAD & SCALP: normocephalic and atraumatic EXTERNAL EAR: Yes external ears normal Eye: COMMON NORMALS: no scleral icterus GENERAL EYE: appearance normal, both eyes and all related structures Chest: COMMONS NORMALS: normal inspection of the chest and normal palpation of entire chest wall CHEST: Yes Symmetrical chest wall rise Resp: OTHER: Diminished air entry bilaterally Cardio: COMMON NORMALS: regular rate, regular rhythm, S1 normal heart sound present, S2 normal heart sound present, No gallops present (Cardio), No murmurs present (Cardio), No rub (Cardio) and Peripheral pulses 2+ throughout RATE: regular rate RHYTHM: regular rhythm HEART SOUNDS: S1 normal heart sound present and S2 normal heart sound present PERIPHERAL PULSES: Peripheral pulses 2+ throughout GI: COMMON NORMALS: Normal to inspection, nondistended, normoactive bowel sounds present, Soft to palpation, non-tender, No hepatosplenomegaly present and no masses AUSCULTATION: Yes normoactive bowel sounds PALPATION: Yes Soft to palpation and Yes No hepatosplenomegaly present RECTAL EXAM: Yes deferred Extremity: COMMON NORMALS: no clubbing, cyanosis or edema and no pedal edema Neuro: COMMON NORMALS: patient oriented x3 Data : 04/29/21 04:32 04/29/21 04:32 A&P Assessment and plan (1) ARDS (adult respiratory distress syndrome): Acute hypoxic respiratory failure secondary to severe ARDS secondary to Covid pneumonia: Diagnosed on 04/20 Decadron and home o2 on 04/21 Today noted to be in respiratory distress with P02 of 42.6 Started on heated high flow Risk vs benefit- Remdesivir 200 mg IV x 1, then 100 mg IV daily x 4 day S/P 1 Dose of Tocilizumab Procalcitonin negative - s/p Vancomycin/Zosyn in ER Will continue Levaquin 750 mg IV daily Wean HFNC as tolerated Consider pulmonary consult D-dimer elevated however CTA negative Ferritin, CRP, in am Status: Acute (2) Acute hypoxemic respiratory failure due to COVID-19: Status: Acute (3) Subcutaneous emphysema: Serial x-ray chest. Avoid positive pressure ventilation Status: Acute (4) Pneumomediastinum: Status: Acute (5) Pneumopericardium: Status: Acute (6) Hypertension: Resume Pankaj regimen Status: Acute (7) DVT prophylaxis: On Lovenox Status: Acute Attestations Medical Necessity Statement*: Patient is to be in hospital for management of severe ARDS secondary to Covid pneumonia. Coding Level of Care Code Acute Electron Beam Machine Welder Setter for Tequila Baez Exam Detailed Diagnoses ARDS (adult respiratory distress syndrome) J80 Acute hypoxemic respiratory failure due to COVID-19 U07.1; J96.01 Subcutaneous emphysema T79.7XXA Pneumomediastinum J98.2 Pneumopericardium I31.9 Hypertension I10 DVT prophylaxis Z29.9
--- NOTE | 2021-04-29 12:28 | XR_ITS ---
WS: [id number] Portable AP upright chest, 04/29/2021 Clinical Data: PE rule out Comparison: Portable chest, 04/28/2021 Findings: The patient has developed subcutaneous emphysema in the right neck and right lateral chest. There is probably pneumomediastinum and pneumopericardium. The patchy bilateral opacities remain the same. The heart size is normal. Monitor leads are on the chest wall XR/XR chest 1V portable [id number] Impression: 1. Subcutaneous emphysema of the neck and right lateral chest wall. 2. Pneumomediastinum and pneumopericardium. 3. No change in bilateral pulmonary opacities.
--- NOTE | 2021-04-29 13:19 | CT_ITS ---
WS: [id number] CT CHEST TECHNIQUE: Noncontrast CT of the chest with coronal and sagittal reformatted images. CLINICAL INFORMATION: Pneumomediastinum ? PTX ? COMPARISON: April 26, 2021 DLP: 995.[address] scans at [facility] use at least one of these dose optimization techniques: automat ed exposure control; mA and/or kV adjustment per patient size (includes targeted exams where dose is matched to clinical indication); or iterative reconstruction. FINDINGS: Diffuse bilateral hazy groundglass infiltrates worse in the mid and lower lungs compatible with COVID 19 pneumonia. This is stable compared to 04/26/21. No focal consolidation or pleural fluid. Extensive subcutaneous emphysema in the lower neck and supraclavicular regions right greater than lef t. Subcutaneous emphysema extending along the right greater than left chest wall. Extensive pneumomed iastinum involving the anterior, middle, and posterior mediastinum. Tiny amount of pneumopericardium. No significant pneumothorax. Tiny trace of pleural air in the dependent lower lobes bilaterally Normal caliber thoracic aorta. Proximal main pulmonary arteries are normal caliber. Adrenal glands ar e normal. Normal GE junction. CT/CT chest wo con [id number] IMPRESSION: 1. Diffuse bilateral hazy groundglass infiltrates worse in the perihilar regio ns and lower lobes bilaterally not significantly changed compared to previous c ompatible with COVID 19 pneumonia. 2. Extensive subcutaneous emphysema lower neck and supraclavicular regions ext ending along the chest marvin bilaterally. 3. Extensive pneumomediastinum with a tiny amount of pneumopericardium. 4. No significant pneumothorax. Tiny trace of pleural air in the lower lobes b ilaterally. Notified Bernabe Becerra MD at 04/29/2021 3:02 PM.
[2021-04-29] MEDS: FUROsemide 10 mg/mL SDV 2mL 20 MG IVP (15:14)
[2021-04-29] MEDS: dexamethasone 4 mg/mL INJ 6 MG IVP (17:27)
[2021-04-29] MEDS: remdesivir 100 MG in sodium chloride 0.9% (100 ml) 100 ML IV (17:28)
--- NOTE | 2021-04-29 18:16 | PC.NURSE ---
Daughter: Kaur [place]. [phone]- Received okay form patient to give information to kaur.
[2021-04-29] MEDS: piperacillin-tazobactam 3.375 GM in sodium chloride 0.9% (plus) 50 ML IV (18:27)
--- NOTE | 2021-04-29 19:07 | PC.NURSE ---
SHift summary: Patient has developed a subcutaeneous emphysema, pneumomediastinum, and pneumopericardium. Indwelling foy started today. HI flow requirements have increased throughout shift. currently at 100% and 50L. followup xrays scheduled for tomorrow morning.
[2021-04-29] MEDS: enoxaparin 100 mg/mL Syringe SUBCUT (20:03)
[2021-04-29] MEDS: LORazepam 2 mg/mL INJ 1 mL IVP (20:03)
[2021-04-29] MEDS: ipratropium-albuterol 3 mL Neb INHALATION (20:30)
--- NOTE | 2021-04-29 21:57 | PC.NURSE ---
Approx. 20:30 Dr. Resendiz called to check on Pt and current status with V/S's. Orders given to monitor and report change in Pt condition including voice quality, . Approx. 20:40 Dr. Mata called to check on Pt and said to call if Pt becomes increasing SOB and unable to maintain SpOx.
[2021-04-30] VITALS (103 sets, daily range): BP systolic 89–139; BP diastolic 51–74; PULSE 63–124; RESP 16–45; TEMP 36.4–37.7; O2SAT 77–95
[2021-04-30] MEDS: LORazepam 2 mg/mL INJ 1 mL IVP ×3 (01:56→20:36)
[2021-04-30] MEDS: piperacillin-tazobactam 3.375 GM in sodium chloride 0.9% (plus) 50 ML IV ×3 (01:56→20:20)
[2021-04-30] MEDS: ipratropium-albuterol 3 mL Neb INHALATION ×4 (02:33→21:21)
--- NOTE | 2021-04-30 06:00 | XR_ITS ---
WS: [id number] Portable AP semiupright chest, 04/30/2021 Clinical Data: Pneumomediastinum Comparison: Portable chest, 04/29/2021. Findings: The bilateral patchy pulmonary opacities remain the same. There is subcutaneous emphysema i n the neck and along the right lateral chest. There is probably a pneumomediastinum and possibly pneu mopericardium. The heart size remains same. Monitor leads are on the chest wall. XR/XR chest 1V portable [id number] Impression: 1. No change in bilateral patchy pulmonary opacities. 2. No change in subcutaneous emphysema, pneumomediastinum and pneumopericardium .
[2021-04-30] MEDS: lanolin oint 7 gm 1 APPLIC TOPICAL (07:37)
--- NOTE | 2021-04-30 08:17 | PC.CHAP ---
Pastoral Care Encounter/Spiritual Assessment Type of Contact [] Declined repairer welding systems and equipment visit [] Patient/Family/Request visit [] Outpatient visit [] Follow-up visit [] Physician referral [] Code/Alert [x] Routine visit [] Staff referral [] Actively dying [] Patient sleeping [] Family support [] [] Out of room [] Palliative care [] [] Receiving care in room [] Pre-surgical visit [] Trauma [] Long length of stay [x] ICU visit [] Other: Relational/Emotional Strength [] Patient feels connected with others/family/visitors/staff [] Distress [] Loneliness/isolation [] Abandonment Spirituality of Patient [] Person of Reta [] Attends Yazidi of their Reta [] Believes in Prayer [] Reads Bible or Quaker materials [] There are Spiritual issues to be addressed [employer] Interventions [x] Prayer [] Active listening [] Non-anxious presence [] Spiritual/emotional support [] Crisis/trauma care [] Spiritual counseling [] Bereavement support [] Provided bereavement packet [] Provided Bible/devotional materials [] Provided toy/stuffed animal, coloring book to patient or family member [] Provided Communion [] Anointing/[place] [] Salvation [x] Completed spiritual assessment [] Other: Impact on Illness or Injury [] Angry [] Fearful [] Anxious [] Often cries [] Exhaustion [] Unable to work [] Unable to attend catholic [] Unable to walk/stand [] Unable to read [] Unable to drive [] Unable to eat/drink [] Unable to sleep [] Unable to be with family [] Patient intubated [] Other: Summary Time spent with patient
--- NOTE | 2021-04-30 08:40 | PC.NURSE ---
Patient prefers laying prone in bed. Only able to maintain an oxygen saturation of 90%+ while laying prone or semi prone. Patient is less energetic than yesterday. Subcutaeneous emphysema sounds as though it has spread overnight, neck is more swollen and it can be heard in the upper back and the occiptal.
[2021-04-30] MEDS: enoxaparin 100 mg/mL Syringe SUBCUT ×2 (09:08→20:20)
[2021-04-30] MEDS: sertraline 50 mg Tablet PO (09:09)
[2021-04-30] MEDS: pantoprazole DR 40 mg Tablet PO (09:09)
[2021-04-30 10:19] LABS: Basophils % 0.1 %; Eosinophils # 0.2 10^3/uL (0.0-0.8); Eosinophils % 1.3 %; Hematocrit 49.9 % (42.0-52.0); Lymphocytes # 0.7 10^3/uL (0.8-4.8); Lymphocytes % 5.2 %; Mean Corpuscular HGB Conc 34.1 g/dL (30.0-36.0); Mean Corpuscular Hemoglobin 30.3 pg (28.0-34.0); Mean Corpuscular Volume 88.9 fL (80-94); Mean Platelet Volume 10.3 fL (7.4-10.4); Monocytes # 0.2 10^3/uL (0.2-0.9); Monocytes % 1.6 %; Neutrophils # 11.98 10^3/uL (1.8-7.7); Neutrophils % 90.1 %; Nucleated Red Blood Cells % 0 %; Platelet Count 198 10^3/cmm (130-400); Red Blood Count 5.61 10^6/uL (4.1-5.3); Red Cell Distribution Width 12.8 % (12.1-15.1); White Blood Count 13.3 10^3/uL (4.0-10.0)
[2021-04-30 10:37] LABS: Alanine Aminotransferase 62 U/L (0-41); Albumin Level 3.1 g/dL (3.5-5.2); Alkaline Phosphatase 85 IU/L (40-130); Anion Gap 17.7 (5-19); Aspartate Amino Transferase 35 U/L (0-40); Blood Urea Nitrogen 18 mg/dL (6-20); C Reactive Protein 20.7 mg/L (0.0-4.9); Calcium 7.9 mg/dL (8.5-10.5); Carbon Dioxide 24 mmol/L (22-29); Chloride 95 mmol/L (98-107); Glomerular Filtration Rate 76.7 mL/min (90-130); Glucose 114 mg/dL (65-115); Osmolality Calculated 279 mOsm/kg (285-295); Potassium 3.7 mmol/L (3.5-5.1); Sodium 133 mmol/L (136-145); Total Bilirubin 0.6 mg/dL (0.15-1.2); Total Protein 6.1 g/dL (6.6-8.7)
[2021-04-30 10:47] LABS: D Dimer >= 20.00 ug/mIFEU (0-0.59)
[2021-04-30 11:07] LABS: Erythrocyte Sedimentation Rate 13 mm/hr (0-10)
[2021-04-30 11:24] LABS: Ferritin 3177 ng/mL (30-400)
--- NOTE | 2021-04-30 13:22 | PC.NURSE ---
severe coughing episode. sats dropped to 75%. new probe added. ativan given. sats back to 88-90%
[2021-04-30] MEDS: guaiFENesin-dextromethorphan UDC 10 mL PO ×3 (13:49→20:36)
[2021-04-30] MEDS: benzonatate 100 mg Capsule PO ×2 (14:39→20:20)
--- NOTE | 2021-04-30 17:03 | PM.PN ---
Subjective Subjective: Interval history: Patient was seen and examined this morning, continued high supplemental oxygen through nasal cannula, a.m. chest x-ray was seen subcutaneous emphysema , pneumomediastinum has not worsened. Patient desaturates very quickly with change in position, his oxygen saturation does recover but with time, denied any chest pain, still tachypneic and severely short of breath. Medications: Reviewed: Yes Vitals/I&O/Wt Last Vital Signs Temp 97.5 F L 04/30/21 16:15 Pulse 100 04/30/21 16:15 Resp 22 H 04/30/21 16:15 BP 100/57 04/30/21 16:15 Pulse Ox 89 L 04/30/21 16:15 04/30/21 04/30/21 04/30/21 06:59 14:59 22:59 Intake Total 250 / 1215 300 / 300 50 / 350 Output Total 575 / 1525 375 / 375 100 / 475 Balance -325 / -310 -75 / -75 -50 / -125 Weight last 48 hrs Weight 96.842 kg Physical Exam Const: COMMON NORMALS: patient oriented x3 HENMT: COMMON NORMALS: normocephalic, atraumatic, hearing grossly normal bilaterally and external ears normal HEAD & SCALP: normocephalic and atraumatic EXTERNAL EAR: Yes external ears normal Eye: COMMON NORMALS: no scleral icterus GENERAL EYE: appearance normal, both eyes and all related structures Chest: COMMONS NORMALS: normal inspection of the chest and normal palpation of entire chest wall CHEST: Yes Symmetrical chest wall rise Resp: OTHER: Diminished air entry bilaterally Cardio: COMMON NORMALS: regular rate, regular rhythm, S1 normal heart sound present, S2 normal heart sound present, No gallops present (Cardio), No murmurs present (Cardio), No rub (Cardio) and Peripheral pulses 2+ throughout RATE: regular rate RHYTHM: regular rhythm HEART SOUNDS: S1 normal heart sound present and S2 normal heart sound present PERIPHERAL PULSES: Peripheral pulses 2+ throughout GI: COMMON NORMALS: Normal to inspection, nondistended, normoactive bowel sounds present, Soft to palpation, non-tender, No hepatosplenomegaly present and no masses AUSCULTATION: Yes normoactive bowel sounds PALPATION: Yes Soft to palpation and Yes No hepatosplenomegaly present RECTAL EXAM: Yes deferred Extremity: COMMON NORMALS: no clubbing, cyanosis or edema and no pedal edema Neuro: COMMON NORMALS: patient oriented x3 Urinary Catheter Management^: Meza: Cath Placed During This Visit: yes Reason for Continuing Indwelling Catheter: Accurate Measurement of Urinary Output in Critically Ill Patients Urinary Catheter Date of Insertion: 04/29/21 Urinary Catheter Time of Insertion: 14:56 Data : 04/30/21 09:35 04/30/21 09:35 A&P Assessment and plan (1) ARDS (adult respiratory distress syndrome): Acute hypoxic respiratory failure secondary to severe ARDS secondary to Covid pneumonia: Diagnosed on 04/20 Decadron and home o2 on 04/21 Today noted to be in respiratory distress with P02 of 42.6 Started on heated high flow Risk vs benefit- Remdesivir 200 mg IV x 1, then 100 mg IV daily x 4 day S/P 1 Dose of Tocilizumab Procalcitonin negative - s/p Vancomycin/Zosyn in ER Initially on Levaquin 750 mg IV daily, was switched to zosyn to broaden the abx Coverage. On HHFONC as tolerated Consider pulmonary consult D-dimer elevated however CTA negative Ferritin, CRP, in am Status: Acute (2) Acute hypoxemic respiratory failure due to COVID-19: Status: Acute (3) Subcutaneous emphysema: Serial x-ray chest. Avoid positive pressure ventilation Status: Acute (4) Pneumomediastinum: Status: Acute (5) Pneumopericardium: 2D Echo Status: Acute (6) Hypertension: Currently blood pressure is well controlled Status: Acute (7) DVT prophylaxis: On Lovenox Status: Acute Attestations Medical Necessity Statement*: Patient needs to be in hospital for management of severe ARDS. Coding Level of Care Code Acute Fundraising Coordinator for [facility] Fwd Exam Detailed Diagnoses ARDS (adult respiratory distress syndrome) J80 Acute hypoxemic respiratory failure due to COVID-19 U07.1; J96.01 Subcutaneous emphysema T79.7XXA Pneumomediastinum J98.2 Pneumopericardium I31.9 Hypertension I10 DVT prophylaxis Z29.9
--- NOTE | 2021-04-30 17:14 | PC.PT ---
DC PT at this time secondary to patient is not able to tolerate any activity. Please reorder once patient is able to tolerate more however patient's mobility and strength is good just cannot breathe.
[2021-04-30] MEDS: dexamethasone 4 mg/mL INJ 6 MG IVP (17:49)
[2021-04-30] MEDS: ALPRAZolam 0.5 mg Tablet PO (17:51)
[2021-04-30] MEDS: remdesivir 100 MG in sodium chloride 0.9% (100 ml) 100 ML IV (17:51)
--- NOTE | 2021-04-30 19:26 | PC.NURSE ---
SHift summary: No notable changes. Patient rested in bed most of day. Stayed on 100% 50 L hi flow. Did have one coughing fit which dropped his saturation and he was slow to recover. Cough medication started.
[2021-04-30] MEDS: fluticasone nasal spray 16gm Btl 1 SPRAY NASAL (20:36)
[2021-04-30] MEDS: budesonide 0.5 mg/2 mL Neb INHALATION (21:21)
[2021-05-01] VITALS (47 sets, daily range): BP systolic 99–165; BP diastolic 63–85; PULSE 78–121; RESP 20–47; TEMP 36.7–37.2; O2SAT 84–95
[2021-05-01] MEDS: guaiFENesin-dextromethorphan UDC 10 mL PO ×6 (01:13→22:18)
[2021-05-01] MEDS: ipratropium-albuterol 3 mL Neb INHALATION ×5 (02:16→20:32)
[2021-05-01] MEDS: piperacillin-tazobactam 3.375 GM in sodium chloride 0.9% (plus) 50 ML IV ×3 (02:52→19:38)
[2021-05-01] MEDS: LORazepam 2 mg/mL INJ 1 mL IVP ×4 (02:53→20:25)
[2021-05-01 05:11] LABS: ABG PCO2 31.2 mmHg (35-45); ABG PH Result 7.44 (7.35-7.45); Alveolar-Arterial Oxygen Gradi 77.6 mmHg (5-10); Arterial Blood Gas Hematocrit 52.4 % (42-52); Base Excess ABG -1.5 mmol/L (-2.0-2.0); Blood Gas Sample Site Brachial, left; Blood Gas Sample Type Arterial; Carboxyhemoglobin 0.3 %THgb (0.4-20.1); HCO3 ABG 21.4 mmol/L (22-26); HGB O2 Sat 94.4 % (95-100); Ionized Calcium Level - ABG 1.2 mmol/L (1.1-1.4); Methemoglobin 0.8 % (0.4-1.5); Oxygen Saturation ABG 95.4; PO2 ABG 77.3 mmHg (80.0-100.0); Potassium Level - ABG 4.1 mmol/L (3.5-5.0); Total Hemoglobin 17.1 g/dL (14-18)
[2021-05-01 05:33] LABS: Basophils % 0.2 %; Eosinophils # 0.1 10^3/uL (0.0-0.8); Eosinophils % 0.8 %; Hematocrit 46.6 % (42.0-52.0); Hemoglobin 16.2 g/dL (11.7-16.6); Lymphocytes # 0.4 10^3/uL (0.8-4.8); Lymphocytes % 2.4 %; Mean Corpuscular HGB Conc 34.8 g/dL (30.0-36.0); Mean Corpuscular Volume 86.3 fL (80-94); Mean Platelet Volume 10.4 fL (7.4-10.4); Monocytes # 0.3 10^3/uL (0.2-0.9); Monocytes % 1.8 %; Neutrophils # 14.76 10^3/uL (1.8-7.7); Neutrophils % 92.7 %; Nucleated Red Blood Cells % 0 %; Platelet Count 195 10^3/cmm (130-400); Red Cell Distribution Width 12.5 % (12.1-15.1); White Blood Count 15.9 10^3/uL (4.0-10.0)
[2021-05-01 05:50] LABS: Fibrinogen 250 mg/dL (174-498)
[2021-05-01 05:55] LABS: D Dimer 19.51 ug/mIFEU (0-0.59)
[2021-05-01 05:57] LABS: Alanine Aminotransferase 60 U/L (0-41); Alkaline Phosphatase 89 IU/L (40-130); Anion Gap 19.1 (5-19); Aspartate Amino Transferase 45 U/L (0-40); Blood Urea Nitrogen 18 mg/dL (6-20); C Reactive Protein 11.4 mg/L (0.0-4.9); Carbon Dioxide 20 mmol/L (22-29); Chloride 97 mmol/L (98-107); Globulin 2.7 g/dL (1.3-4.6); Glomerular Filtration Rate 86.7 mL/min (90-130); Glucose 166 mg/dL (65-115); Osmolality Calculated 280 mOsm/kg (285-295); Potassium 4.1 mmol/L (3.5-5.1); Sodium 132 mmol/L (136-145); Total Bilirubin 0.4 mg/dL (0.15-1.2); Total Protein 5.7 g/dL (6.6-8.7)
--- NOTE | 2021-05-01 06:00 | XR_ITS ---
WS: [id number] Portable AP upright chest, 05/01/2021 Clinical Data: Subcutaneous emphysema, pneumomediastinum Comparison: Portable chest, 04/30/2021 Findings: The subcutaneous emphysema in the neck has diminished. There is still a pneumomediastinum a nd probable pneumopericardium. The bilateral patchy pulmonary opacities remain the same. The heart si ze is not changed. There are monitor leads on the chest wall. XR/XR chest 1V portable [id number] Impression: 1. Decrease in subcutaneous emphysema in the neck. 2. No change in pneumomediastinum and pneumopericardium. 3. No change in patchy opacities in both lungs.
[2021-05-01 06:04] LABS: Oxygen Device HHFNC
[2021-05-01 06:25] LABS: Erythrocyte Sedimentation Rate 10 mm/hr (0-10); Ferritin 2709 ng/mL (30-400)
[2021-05-01] MEDS: budesonide 0.5 mg/2 mL Neb INHALATION ×2 (08:15→20:32)
--- NOTE | 2021-05-01 08:25 | PC.NURSE ---
pt right IV line was tender with saline flush. will assess again.
--- NOTE | 2021-05-01 08:30 | PC.NURSE ---
pt breathing between 30&40 breaths a minute.
[2021-05-01] MEDS: pantoprazole 40 mg SDV IVP (08:36)
[2021-05-01] MEDS: benzonatate 100 mg Capsule PO ×3 (08:37→20:09)
[2021-05-01] MEDS: sertraline 50 mg Tablet PO (08:37)
[2021-05-01] MEDS: enoxaparin 100 mg/mL Syringe SUBCUT ×2 (08:39→20:09)
--- NOTE | 2021-05-01 09:42 | PC.NUTR ---
Nutrition assessment completed for LOS. PO intakes averaging 41%, however pt is consuming Ensure Plus as well per chart review. No dietary changes warranted at this time. Recommend to continue to encourage po intakes of meals/supplements to optimize nutrition and provide preferences as appropriate. Also recommend SUGAR CONTROLLER eval given swallowing difficulty noted on admission screen. See RD assessment for further details.
--- NOTE | 2021-05-01 10:11 | PC.NURSE ---
pt turns himself. pts HFNC was switched to the opposite side because he is laying on his left side. pt instructed to let staff know when he turns sides so tube can be switched to the other side. fits more appropriately when switched.
--- NOTE | 2021-05-01 11:02 | PC.NURSE ---
pt sleeping at this time. left lying.
--- NOTE | 2021-05-01 11:18 | P.PN_ITS ---
Subjective Subjective: Interval history: Patient was seen and examined this morning, continued to have high supplemental oxygen through nasal cannula, a.m. chest x- ray was seen subcutaneous emphysema , pneumomediastinum has not worsened. Medications: Reviewed: Yes Vitals/I&O/Wt Last Vital Signs Temp 98.1 F 05/01/21 07:54 Pulse 89 05/01/21 08:13 Resp 22 H 05/01/21 08:09 BP 145/77 05/01/21 07:54 Pulse Ox 93 05/01/21 08:13 04/30/21 05/01/21 05/01/21 22:59 06:59 14:59 Intake Total 350 / 650 1051 / 1701 400 / 400 Output Total 325 / 700 300 / 1000 Balance 25 / -50 751 / 701 400 / 400 Weight last 48 hrs Weight 96.615 kg Weight 96.842 kg Physical Exam Const: COMMON NORMALS: patient oriented x3 HENMT: COMMON NORMALS: normocephalic, atraumatic, hearing grossly normal bilaterally and external ears normal HEAD & SCALP: normocephalic and atraumatic EXTERNAL EAR: Yes external ears normal Eye: COMMON NORMALS: no scleral icterus GENERAL EYE: appearance normal, both eyes and all related structures Chest: COMMONS NORMALS: normal inspection of the chest and normal palpation of entire chest wall CHEST: Yes Symmetrical chest wall rise Resp: OTHER: Diminished air entry bilaterally Cardio: COMMON NORMALS: regular rate, regular rhythm, S1 normal heart sound present, S2 normal heart sound present, No gallops present (Cardio), No murmurs present (Cardio), No rub (Cardio) and Peripheral pulses 2+ throughout RATE: regular rate RHYTHM: regular rhythm HEART SOUNDS: S1 normal heart sound present and S2 normal heart sound present PERIPHERAL PULSES: Peripheral pulses 2+ throughout GI: COMMON NORMALS: Normal to inspection, nondistended, normoactive bowel sounds present, Soft to palpation, non-tender, No hepatosplenomegaly present and no masses AUSCULTATION: Yes normoactive bowel sounds PALPATION: Yes Soft to palpation and Yes No hepatosplenomegaly present RECTAL EXAM: Yes deferred Extremity: COMMON NORMALS: no clubbing, cyanosis or edema and no pedal edema Neuro: COMMON NORMALS: patient oriented x3 Urinary Catheter Management^: Meza: Cath Placed During This Visit: yes Reason for Continuing Indwelling Catheter: Accurate Measurement of Urinary Output in Critically Ill Patients Urinary Catheter Date of Insertion: 04/29/21 Urinary Catheter Time of Insertion: 14:56 Data : 05/01/21 04:55 05/01/21 04:55 A&P Assessment and plan (1) ARDS (adult respiratory distress syndrome): Acute hypoxic respiratory failure secondary to severe ARDS secondary to Covid pneumonia: Diagnosed on 04/20 Decadron and home o2 on 04/21 Today noted to be in respiratory distress with P02 of 42.6 Started on heated high flow Risk vs benefit- Remdesivir 200 mg IV x 1, then 100 mg IV daily x 4 day S/P 1 Dose of Tocilizumab On therapeutic Lovenox Procalcitonin negative - s/p Vancomycin/Zosyn in ER Initially on Levaquin 750 mg IV daily, was switched to zosyn to broaden the abx Coverage. On HHFONC as tolerated Consider pulmonary consult D-dimer elevated however CTA negative Ferritin, CRP, in am Status: Acute (2) Acute hypoxemic respiratory failure due to COVID-19: Status: Acute (3) Subcutaneous emphysema: Serial x-ray chest. Avoid positive pressure ventilation Status: Acute (4) Pneumomediastinum: Status: Acute (5) Pneumopericardium: 2D Echo : Technically difficult study: Probably normal left ventricular s ystolic function. No pericardial effusion. Status: Acute (6) Hypertension: Currently blood pressure is well controlled Status: Acute (7) DVT prophylaxis: On Lovenox Status: Acute Attestations Medical Necessity Statement*: Patient needs to be in the hospital for management of severe ARDS secondary to Covid pneumonia. Coding Level of Care Code Acute Teletypesetter Operator for [facility] Fwd Exam Detailed Diagnoses ARDS (adult respiratory distress syndrome) J80 Acute hypoxemic respiratory failure due to COVID-19 U07.1; J96.01 Subcutaneous emphysema T79.7XXA Pneumomediastinum J98.2 Pneumopericardium I31.9 Hypertension I10 DVT prophylaxis Z29.9
--- NOTE | 2021-05-01 11:18 | PC.NURSE ---
pt was uncomfortable. helped pt roll over on right side. placed a stat lock after this nurse asked pt if foy was pulling. pt sat dipped to 83/84.. stayed for approximately 4-5 minutes, and then jean to 89.
--- NOTE | 2021-05-01 11:46 | PC.NURSE ---
pt resting in bed. pt given ativan, cough med, and anti biotic. repositioned. asked for update. this patient informed pt that things had improved, slightly, but any improvement is good. and doctor planned to let him and his body rest.
--- NOTE | 2021-05-01 13:08 | PC.NURSE ---
pt noticed to be desatting into the 70's. this nurse placed a new probe on the opposite hand. plan to switch back when he rolls over next.
[2021-05-01] MEDS: FUROsemide 10 mg/mL SDV 2mL 20 MG IVP (14:03)
--- NOTE | 2021-05-01 15:55 | PC.NURSE ---
pt pizza arrived from daughter. pt ate around 25%. stated pizza was 'spicy' pt also wanted some ice cream. tolerated ice cream well. pt wished to speak to pastoral care; chaplain gaming called his cell phone and we prayed in the room.
--- NOTE | 2021-05-01 15:57 | PC.NURSE ---
pt hit call light because his nasal cannula would stop working then start again. this nurse repositioned tubing because the way pt was lying on it, it was kinked. informed pt if machine alarmed again we would call resp.
--- NOTE | 2021-05-01 16:20 | PC.NURSE ---
blood pressure reading elevated. checked patient cuff to retake and cuff was found on his ankle. repositioned cuff and retook; pressure reading 101/70 with retake.
--- NOTE | 2021-05-01 16:50 | USCV_ITS ---
Arley Bhatt Age: 60 Gender: M : 1960 Exam Date: 05/01/2021 06:10 Ordering Phys: Bernabe Becerra MD Technologist: FELIX [place]am Location[place] [facility] [place]: PNEUMOPERICARDUIM BP: 119 / 75 HR: Rhythm: Sinus Technical Quality: Technically difficult study MEASUREMENTS (Male / Female) Normal Values FINDINGS Left Ventricle Left ventricular cavity not well visualized. Right Ventricle Right ventricle not well visualized. Right Atrium Right atrium not well visualized. Left Atrium Left atrium not well visualized. Mitral Valve Mitral valve not well visualized. Aortic Valve Aortic valve not well visualized. Tricuspid Valve Trace tricuspid valve regurgitation. Pulmonic Valve Pulmonic valve not well visualized. Pericardium No pericardial effusion. Aorta Normal-sized inferior vena cava. Aorta not well visualized. CONCLUSIONS 1. This is a technically very difficult and limited study. No parasternal or apical windows. Limited subcostal views. 2. Probably normal left ventricular systolic function. 3. No pericardial effusion. 4. No prior similar studies to compare. Rosa Muhammad MD (Electronically Signed) Final Date: 01 May 2021 13:19 S
[2021-05-01] MEDS: morphine 4 mg/mL SDV 1 mL 2 MG IVP ×2 (17:36→21:00)
[2021-05-01] MEDS: dexamethasone 4 mg/mL INJ 6 MG IVP (17:37)
--- NOTE | 2021-05-01 18:03 | PC.NURSE ---
pt hit call light for this hour because he was struggling to breathe. pt tosses and turned and rolls and his tubing on his HFNC became dislodged. resp was called and issue was addressed and fixed. pt recovered quickly.
[2021-05-01] MEDS: dexmedetomidine 400 MCG in sodium chloride 0.9% (100 ml) 100 ML IV (22:18)
[2021-05-02] VITALS (38 sets, daily range): BP systolic 99–163; BP diastolic 45–88; PULSE 54–103; RESP 22–41; TEMP 36.7; O2SAT 78–96
[2021-05-02] MEDS: LORazepam 2 mg/mL INJ 1 mL IVP ×2 (00:38→04:05)
[2021-05-02] MEDS: morphine 4 mg/mL SDV 1 mL 2 MG IVP ×4 (00:38→20:00)
[2021-05-02] MEDS: guaiFENesin-dextromethorphan UDC 10 mL PO ×5 (02:06→21:19)
[2021-05-02] MEDS: piperacillin-tazobactam 3.375 GM in sodium chloride 0.9% (plus) 50 ML IV ×4 (02:06→23:02)
[2021-05-02] MEDS: ipratropium-albuterol 3 mL Neb INHALATION ×3 (02:43→20:18)
[2021-05-02 06:44] LABS: Basophils # 0.1 10^3/uL (0.0-0.1); Basophils % 0.3 %; Eosinophils # 0.1 10^3/uL (0.0-0.8); Eosinophils % 0.3 %; Hematocrit 48.3 % (42.0-52.0); Hemoglobin 16.7 g/dL (11.7-16.6); Lymphocytes # 0.6 10^3/uL (0.8-4.8); Lymphocytes % 2.8 %; Mean Corpuscular HGB Conc 34.6 g/dL (30.0-36.0); Mean Corpuscular Hemoglobin 29.9 pg (28.0-34.0); Mean Corpuscular Volume 86.4 fL (80-94); Mean Platelet Volume 10.7 fL (7.4-10.4); Monocytes # 0.4 10^3/uL (0.2-0.9); Monocytes % 1.8 %; Neutrophils # 20.72 10^3/uL (1.8-7.7); Neutrophils % 91.6 %; Nucleated Red Blood Cells % 0 %; Platelet Count 203 10^3/cmm (130-400); Red Blood Count 5.59 10^6/uL (4.1-5.3); Red Cell Distribution Width 12.7 % (12.1-15.1); White Blood Count 22.6 10^3/uL (4.0-10.0)
[2021-05-02 07:07] LABS: Alanine Aminotransferase 58 U/L (0-41); Albumin Level 3.2 g/dL (3.5-5.2); Alkaline Phosphatase 104 IU/L (40-130); Anion Gap 19.4 (5-19); Aspartate Amino Transferase 42 U/L (0-40); Blood Urea Nitrogen 19 mg/dL (6-20); Calcium 8.2 mg/dL (8.5-10.5); Carbon Dioxide 23 mmol/L (22-29); Chloride 96 mmol/L (98-107); Globulin 2.7 g/dL (1.3-4.6); Glomerular Filtration Rate 86.7 mL/min (90-130); Glucose 153 mg/dL (65-115); Osmolality Calculated 283 mOsm/kg (285-295); Potassium 4.4 mmol/L (3.5-5.1); Sodium 134 mmol/L (136-145); Total Bilirubin 0.4 mg/dL (0.15-1.2); Total Protein 5.9 g/dL (6.6-8.7)
[2021-05-02 07:09] LABS: C Reactive Protein 5.9 mg/L (0.0-4.9); D Dimer 13.16 ug/mIFEU (0-0.59)
[2021-05-02 07:19] LABS: Fibrinogen 267 mg/dL (174-498)
--- NOTE | 2021-05-02 08:10 | XRR_ITS ---
PROCEDURE INFORMATION: Exam: XR Chest Exam date and time: 05/02/2021 8:10 AM Age: 60 years old Clinical indication: Shortness of breath; Additional info: Subcutaneous emphysema, pneumomediastinum TECHNIQUE: Imaging protocol: XR of the chest. Views: 1 view. COMPARISON: CR XR chest 1V portable [id number] 05/01/2021 6:14 AM FINDINGS: Lungs: Bilateral interstitial/airspace disease. Pleural spaces: Small newly developed bilateral pneumothoraces, right greater than left. Heart/Mediastinum: Pneumomediastinum. No cardiomegaly. Bones/joints: Degenerative change. Soft tissues: Multifocal subcutaneous emphysema. XR/XR chest 1V portable [id number] IMPRESSION: 1. Small newly developed bilateral pneumothoraces, right greater than left. 2. Bilateral interstitial/airspace disease. The aforementioned findings initiated a critical results communication pathway. An addendum will be issued at the time of clincian notification.
[2021-05-02] MEDS: sertraline 50 mg Tablet PO (08:14)
[2021-05-02] MEDS: enoxaparin 100 mg/mL Syringe SUBCUT ×2 (08:14→20:00)
[2021-05-02] MEDS: benzonatate 100 mg Capsule PO ×3 (08:14→20:00)
[2021-05-02] MEDS: pantoprazole 40 mg SDV IVP (08:14)
[2021-05-02 08:49] LABS: Erythrocyte Sedimentation Rate 5 mm/hr (0-10)
--- NOTE | 2021-05-02 08:56 | PC.NURSE ---
sedated on precedex at this time awaken for cxr and am meds at this time
[2021-05-02] MEDS: FUROsemide 10 mg/mL SDV 2mL 20 MG IVP ×3 (09:08→20:00)
[2021-05-02] MEDS: budesonide 0.5 mg/2 mL Neb INHALATION ×2 (09:50→20:18)
[2021-05-02] MEDS: vancomycin 1,500 MG/300 ML PIGGYBACK 200 MG IV ×2 (10:56→21:19)
--- NOTE | 2021-05-02 11:18 | PC.NURSE ---
amanda called with cxr results called to Dr Becerra who is going to call daughter and
[2021-05-02 12:48] LABS: Ferritin 2769 ng/mL (30-400)
--- NOTE | 2021-05-02 14:37 | PM.PN ---
Subjective Subjective: Interval history: Patient was seen and examined this morning, continued to have high supplemental oxygen through nasal cannula, a.m. chest x-ray was seen subcutaneous emphysema , pneumomediastinum has not worsened but there has been interval development of bilateral small apical pneumothorax.He continue to be tachypenic and continue to desaturate with minimal movements. Medications: Reviewed: Yes Vitals/I&O/Wt Last Vital Signs Temp 98.1 F 05/01/21 16:00 Pulse 73 05/02/21 14:12 Resp 25 H 05/02/21 14:12 BP 142/88 05/02/21 12:00 Pulse Ox 96 05/02/21 14:12 05/01/21 05/02/21 05/02/21 22:59 06:59 14:59 Intake Total 50 / 450 452.008 / 902.008 700 / 700 Output Total 1100 / 1100 450 / 1550 100 / 100 Balance -1050 / -650 2.008 / -647.992 600 / 600 Weight last 48 hrs Weight 96.615 kg Physical Exam Const: COMMON NORMALS: patient oriented x3 HENMT: COMMON NORMALS: normocephalic, atraumatic, hearing grossly normal bilaterally and external ears normal HEAD & SCALP: normocephalic and atraumatic EXTERNAL EAR: Yes external ears normal Eye: COMMON NORMALS: no scleral icterus GENERAL EYE: appearance normal, both eyes and all related structures Chest: COMMONS NORMALS: normal inspection of the chest and normal palpation of entire chest wall CHEST: Yes Symmetrical chest wall rise Resp: OTHER: Diminished air entry bilaterally Cardio: COMMON NORMALS: regular rate, regular rhythm, S1 normal heart sound present, S2 normal heart sound present, No gallops present (Cardio), No murmurs present (Cardio), No rub (Cardio) and Peripheral pulses 2+ throughout RATE: regular rate RHYTHM: regular rhythm HEART SOUNDS: S1 normal heart sound present and S2 normal heart sound present PERIPHERAL PULSES: Peripheral pulses 2+ throughout GI: COMMON NORMALS: Normal to inspection, nondistended, normoactive bowel sounds present, Soft to palpation, non-tender, No hepatosplenomegaly present and no masses AUSCULTATION: Yes normoactive bowel sounds PALPATION: Yes Soft to palpation and Yes No hepatosplenomegaly present RECTAL EXAM: Yes deferred Extremity: COMMON NORMALS: no clubbing, cyanosis or edema and no pedal edema Neuro: COMMON NORMALS: patient oriented x3 Urinary Catheter Management^: Meza: Cath Placed During This Visit: yes Reason for Continuing Indwelling Catheter: Accurate Measurement of Urinary Output in Critically Ill Patients Urinary Catheter Date of Insertion: 04/29/21 Urinary Catheter Time of Insertion: 14:56 Data : 05/02/21 06:00 05/02/21 06:00 Micro: Microbiology 04/26/21 10:58 Blood Culture - Final Blood NO GROWTH AFTER 5 DAYS 04/26/21 11:00 Blood Culture - Final Blood NO GROWTH AFTER 5 DAYS A&P Assessment and plan (1) ARDS (adult respiratory distress syndrome): Acute hypoxic respiratory failure secondary to severe ARDS secondary to Covid pneumonia: Diagnosed on 04/20 . CTA Negative for P/E . Xray chest : Have shown interval development of subcutaneous emphysema , pneumomediastinum as well as bilateral small apical pneumothorax along with worsening b/l air space disease. D-Dimer: 13.16 ESR:5 CRP:5.9 Ferittin : 2769 Fibrinogen:267 Procalcitonin : 0.39 Blood Culture:NTD MRSA PCR ABG : Completed 5 days course of Remdesivir 200 mg IV x 1, then 100 mg IV daily x 4 day. Dexamaethasone 10 days course On Vancomycin and zosyn S/P 1 Dose of Tocilizumab On therapeutic Lovenox On HHFONC as tolerated Status: Acute (2) Acute hypoxemic respiratory failure due to COVID-19: Status: Acute (3) Subcutaneous emphysema: Serial x-ray chest. Avoid positive pressure ventilation Status: Acute (4) Pneumomediastinum: Status: Acute (5) Pneumopericardium: 2D Echo : Technically difficult study: Probably normal left ventricular systolic function. No pericardial effusion. Status: Acute (6) Hypertension: Currently blood pressure is well controlled Status: Acute (7) DVT prophylaxis: On Lovenox Status: Acute Attestations Medical Necessity Statement*: Patient needs to be in hospital for the management of respiratory failure Coding Level of Care Code Acute Miner for [facility] Fwd Exam Detailed Diagnoses ARDS (adult respiratory distress syndrome) J80 Acute hypoxemic respiratory failure due to COVID-19 U07.1; J96.01 Subcutaneous emphysema T79.7XXA Pneumomediastinum J98.2 Pneumopericardium I31.9 Hypertension I10 DVT prophylaxis Z29.9
[2021-05-02] MEDS: dexamethasone 4 mg/mL INJ 6 MG IVP (17:08)
[2021-05-02] MEDS: dexmedetomidine 400 MCG in sodium chloride 0.9% (100 ml) 100 ML 5.02 MCG IV (18:23)
[2021-05-03] VITALS (37 sets, daily range): BP systolic 99–159; BP diastolic 65–95; PULSE 60–100; RESP 16–41; TEMP 36.4–36.8; O2SAT 51–94
[2021-05-03] MEDS: morphine 4 mg/mL SDV 1 mL 2 MG IVP ×3 (02:00→15:59)
[2021-05-03] MEDS: ipratropium-albuterol 3 mL Neb INHALATION ×4 (03:07→20:15)
[2021-05-03] MEDS: piperacillin-tazobactam 3.375 GM in sodium chloride 0.9% (plus) 50 ML IV ×3 (05:01→17:51)
[2021-05-03] MEDS: guaiFENesin-dextromethorphan UDC 10 mL PO ×5 (05:01→19:35)
--- NOTE | 2021-05-03 06:00 | XRR_ITS ---
PROCEDURE INFORMATION: Exam: XR Chest Exam date and time: 05/03/2021 6:00 AM Age: 60 years old Clinical indication: Condition or disease; Other: Subcutaneous emphysema pneumomediastinum pneumothorax TECHNIQUE: Imaging protocol: XR of the chest. Views: 1 view. COMPARISON: CR (CHEST, ) 05/02/2021 8:30 AM FINDINGS: Lungs: Stable bilateral peripheral pulmonary opacities which may be secondary to COVID-19. Pleural spaces: Stable small bilateral pneumothoraces. Heart/Mediastinum: Stable pneumomediastinum. Bones/joints: Unremarkable. Soft tissues: Stable diffuse subcutaneous emphysema. XR/XR chest 1V portable [id number] IMPRESSION: 1. Stable small bilateral pneumothoraces. 2. Stable diffuse subcutaneous emphysema. 3. Stable bilateral peripheral pulmonary opacities which may be secondary to COVID-19.
[2021-05-03 06:02] LABS: Alanine Aminotransferase 65 U/L (0-41); Albumin Level 3.2 g/dL (3.5-5.2); Alkaline Phosphatase 127 IU/L (40-130); Aspartate Amino Transferase 56 U/L (0-40); Blood Urea Nitrogen 18 mg/dL (6-20); Calcium 7.8 mg/dL (8.5-10.5); Carbon Dioxide 21 mmol/L (22-29); Chloride 94 mmol/L (98-107); Globulin 2.7 g/dL (1.3-4.6); Glomerular Filtration Rate 99.3 mL/min (90-130); Glucose 153 mg/dL (65-115); Osmolality Calculated 275 mOsm/kg (285-295); Sodium 130 mmol/L (136-145); Total Bilirubin 0.5 mg/dL (0.15-1.2); Total Protein 5.9 g/dL (6.6-8.7)
[2021-05-03 06:04] LABS: Anion Gap 19.2 (5-19); Potassium 4.2 mmol/L (3.5-5.1)
[2021-05-03 06:06] LABS: D Dimer 6.83 ug/mIFEU (0-0.59)
[2021-05-03 06:46] LABS: Fibrinogen 228 mg/dL (174-498)
[2021-05-03 06:51] LABS: Basophils # 0.1 10^3/uL (0.0-0.1); Basophils % 0.3 %; Eosinophils # 0.1 10^3/uL (0.0-0.8); Eosinophils % 0.3 %; Hematocrit 47.3 % (42.0-52.0); Hemoglobin 16.8 g/dL (11.7-16.6); Lymphocytes # 0.5 10^3/uL (0.8-4.8); Lymphocytes % 1.8 %; Mean Corpuscular HGB Conc 35.5 g/dL (30.0-36.0); Mean Corpuscular Hemoglobin 30.8 pg (28.0-34.0); Mean Corpuscular Volume 86.6 fL (80-94); Monocytes # 0.5 10^3/uL (0.2-0.9); Neutrophils # 22.87 10^3/uL (1.8-7.7); Neutrophils % 91.5 %; Nucleated Red Blood Cells % 0 %; Platelet Count 249 10^3/cmm (130-400); Red Blood Count 5.46 10^6/uL (4.1-5.3); Red Cell Distribution Width 12.8 % (12.1-15.1)
[2021-05-03 07:31] LABS: Erythrocyte Sedimentation Rate 3 mm/hr (0-10)
[2021-05-03 08:10] LABS: C Reactive Protein 3.8 mg/L (0.0-4.9)
[2021-05-03] MEDS: FUROsemide 10 mg/mL SDV 2mL 20 MG IVP ×2 (08:59→23:15)
[2021-05-03] MEDS: benzonatate 100 mg Capsule PO ×2 (08:59→15:35)
[2021-05-03] MEDS: pantoprazole 40 mg SDV IVP (08:59)
[2021-05-03] MEDS: enoxaparin 100 mg/mL Syringe SUBCUT (09:00)
[2021-05-03] MEDS: sertraline 50 mg Tablet PO (09:00)
[2021-05-03 09:07] LABS: Ferritin 2699 ng/mL (30-400)
[2021-05-03] MEDS: budesonide 0.5 mg/2 mL Neb INHALATION ×2 (09:55→20:15)
[2021-05-03] MEDS: vancomycin 1,500 MG/300 ML PIGGYBACK 200 MG IV (10:08)
[2021-05-03] MEDS: dexmedetomidine 400 MCG in sodium chloride 0.9% (100 ml) 100 ML 5.02 MCG IV ×2 (10:09→17:56)
[2021-05-03 11:39] LABS: ABG PCO2 34.3 mmHg (35-45); ABG PH Result 7.48 (7.35-7.45); Alveolar-Arterial Oxygen Gradi 80.2 mmHg (5-10); Arterial Blood Gas Hematocrit 51.4 % (42-52); Base Excess ABG 2.2 mmol/L (-2.0-2.0); Blood Gas Allen Test Pos; Blood Gas Operator Identificat GD; Blood Gas Sample Site Radial, right; Blood Gas Sample Type Arterial; Carboxyhemoglobin 0.6 %THgb (0.4-20.1); HCO3 ABG 25.2 mmol/L (22-26); HGB O2 Sat 86.1 % (95-100); Ionized Calcium Level - ABG 1.1 mmol/L (1.1-1.4); Methemoglobin 0.9 % (0.4-1.5); Oxygen Device NC; Oxygen Saturation ABG 87.4; PO2 ABG 52.4 mmHg (80.0-100.0); Potassium Level - ABG 3.9 mmol/L (3.5-5.0); Total Hemoglobin 16.8 g/dL (14-18)
[2021-05-03] MEDS: LORazepam 2 mg/mL INJ 1 mL IVP ×2 (14:57→18:53)
--- NOTE | 2021-05-03 16:53 | PC.NURSE ---
episodes of anxiety and air hunger with o2 sat decreased to 80 prior ativan and morphine given
[2021-05-03] MEDS: dexamethasone 4 mg/mL INJ 6 MG IVP (17:51)
--- NOTE | 2021-05-03 18:14 | XRR_ITS ---
PROCEDURE INFORMATION: Exam: XR Chest Exam date and time: 05/03/2021 6:14 PM Age: 60 years old Clinical indication: Cough TECHNIQUE: Imaging protocol: XR of the chest. Views: 1 view. Total images: 1 COMPARISON: CR (CHEST, ) 05/03/2021 4:40 AM FINDINGS: Tubes, catheters and devices: EKG leads. Lungs: Bilateral diffuse predominant ground-glass interstitial lung disease of suspected active interstitial pneumonitis. Pleural spaces: No appreciable significant interval change bilateral small volume pneumothoraces of considered less than 10% volume. Heart/Mediastinum: Cardiac structures and configuration appear grossly stable. Potential associated mild pneumomediastinum. Bones/joints: Unremarkable as visualized. Soft tissues: Marked soft tissue emphysema, right hemithorax more involved than left extending into the neck base within the field of view. XR/XR chest 1V portable [id number] IMPRESSION: Radiographically no appreciable significant interval change cardiopulmonary status.
--- NOTE | 2021-05-03 18:26 | PC.NURSE ---
remains anxious and restless with some resp distress high flow o2 in use Dr Becerra
--- NOTE | 2021-05-03 19:35 | PC.NURSE ---
New orders; MD Hernan gave orders to increase precedex to 1.2mcg/kg/hr.
[2021-05-03] MEDS: LORazepam 2 mg/mL INJ 1 mL 1 MG IM (19:42)
--- NOTE | 2021-05-03 20:41 | XRR_ITS ---
PROCEDURE INFORMATION: Exam: XR Chest Exam date and time: 05/03/2021 8:41 PM Age: 60 years old Clinical indication: Device placement; Ett placement (vent status); Additional info: Intubation TECHNIQUE: Imaging protocol: XR of the chest. Views: 1 view. Total images: 1 COMPARISON: CR (CHEST, ) 05/03/2021 6:37 PM FINDINGS: Tubes, catheters and devices: Interval placement of an endotracheal tube tip in satisfactory position above the marcelino. Lungs: Bilateral diffuse predominant ground-glass interstitial lung disease of suspected active interstitial pneumonitis. Pleural spaces: Interval decrease in the volume of the bilateral pneumothoraces now less than 5% bilaterally. Heart/Mediastinum: Cardiac structures and configuration appear grossly stable. Potential associated mild pneumomediastinum again evident. Bones/joints: Unremarkable as visualized. Soft tissues: Marked soft tissue emphysema, right hemithorax more involved than left, extending into the neck base within the field of view. XR/XR chest 1V portable [id number] IMPRESSION: 1. Interval placement of an endotracheal tube tip in satisfactory position above the marcelino. 2. Interval decrease in the volume of the bilateral pneumothoraces now less than 5% bilaterally. 3. Remainder of the cardiopulmonary/cardiothoracic findings stable.
[2021-05-03] MEDS: succinylcholine 20 mg/mL SDV 10mL 40 MG IVP (20:55)
[2021-05-03] MEDS: succinylcholine 20 mg/mL SDV 10mL 80 MG IVP (20:55)
[2021-05-03] MEDS: propofol 1,000 MG/100 ML INJ 23.19 MG IV (21:00)
--- NOTE | 2021-05-03 21:00 | PC.NURSE ---
Intubation/Central line placement; Patient continued to remain restless on HHF. Bipap therapy initiated and failed. PRN Ativan X4mg given as well as PRN cough suppressant and increase in sedation/anti anxiety via IV. Patient continued to decline with SPO2 in 60%. MD returned to bedside after RN and RT called a few times to update, and at that point made the decision to intubate. Right triple lumen central line placed to right femoral by MD Hernan. Patient then intubated with 30 of Etomidate, and 120 of succs via IVP @2054. Intubated via Hernan, with Ashley and Esperanza PISANO's at bedside. 8.0 ET and 23@ lip @2056. Xray to confirm placement. Sterile technique used for both procedures.
[2021-05-03] MEDS: cisatracurium 100 MG in sodium chloride 0.9% 50 ML IV (21:30)
--- NOTE | 2021-05-03 22:13 | XRR_ITS ---
PROCEDURE INFORMATION: Exam: XR Chest Exam date and time: 05/03/2021 10:13 PM Age: 60 years old Clinical indication: Dyspnea; Patient HX: Post code, chest tubes; Additional info: Change in respiratory TECHNIQUE: Imaging protocol: XR of the chest. Views: 1 view. COMPARISON: CR (CHEST, ) 05/03/2021 9:02 PM FINDINGS: Tubes, catheters and devices: Endotracheal tube tip over the T1 vertebral body. Interval placement of left chest tube. Interval placement of right chest tube. Lungs: Increased right hemithorax soft tissue emphysema with bilateral neck and supraclavicular soft tissue emphysema. Pleural spaces: Unremarkable. No pleural effusion. No pneumothorax. Heart/Mediastinum: Unremarkable. No cardiomegaly. Bones/joints: Unremarkable. XR/XR chest 1V portable [id number] IMPRESSION: 1. Endotracheal tube tip over the T1 vertebral body. 2. Interval placement of left chest tube. 3. Interval placement of right chest tube. 4. Increased right hemithorax soft tissue emphysema with bilateral neck and supraclavicular soft tissue emphysema.
[2021-05-03 23:37] LABS: Vancomycin Trough 8.1 ug/mL (10-15)
[2021-05-04] VITALS: BP 117/66; PULSE 121; TEMP 35.3; O2SAT 70
[2021-05-04] MEDS: FUROsemide 10 mg/mL SDV 4mL 40 MG IVP (00:10)
--- NOTE | 2021-05-04 00:42 | PM.PN ---
Subjective Subjective: Interval history: Patient was seen and examined this morning, continued to have high supplemental oxygen through nasal cannula, a.m. chest x-ray was seen subcutaneous emphysema , pneumomediastinum as well as b/l ptx has not worsened.He continue to be extremely tachypenic and agitated today , and continues to desaturate with minimal movements. Medications: Reviewed: Yes Vitals/I&O/Wt Last Vital Signs Temp 98.0 F 05/03/21 08:00 Pulse 100 05/03/21 20:01 Resp 17 05/03/21 22:59 BP 124/80 05/03/21 16:00 Pulse Ox 84 L 05/03/21 20:01 05/03/21 05/03/21 05/04/21 14:59 22:59 06:59 Intake Total 456.977 / 456.977 110.962 / 567.939 Balance 456.977 / 456.977 110.962 / 567.939 Physical Exam Const: COMMON NORMALS: patient oriented x3 HENMT: COMMON NORMALS: normocephalic, atraumatic, hearing grossly normal bilaterally and external ears normal HEAD & SCALP: normocephalic and atraumatic EXTERNAL EAR: Yes external ears normal Eye: COMMON NORMALS: no scleral icterus GENERAL EYE: appearance normal, both eyes and all related structures Chest: COMMONS NORMALS: normal inspection of the chest and normal palpation of entire chest wall CHEST: Yes Symmetrical chest wall rise Resp: OTHER: Diminished air entry bilaterally Cardio: COMMON NORMALS: regular rate, regular rhythm, S1 normal heart sound present, S2 normal heart sound present, No gallops present (Cardio), No murmurs present (Cardio), No rub (Cardio) and Peripheral pulses 2+ throughout RATE: regular rate RHYTHM: regular rhythm HEART SOUNDS: S1 normal heart sound present and S2 normal heart sound present PERIPHERAL PULSES: Peripheral pulses 2+ throughout GI: COMMON NORMALS: Normal to inspection, nondistended, normoactive bowel sounds present, Soft to palpation, non-tender, No hepatosplenomegaly present and no masses AUSCULTATION: Yes normoactive bowel sounds PALPATION: Yes Soft to palpation and Yes No hepatosplenomegaly present RECTAL EXAM: Yes deferred Extremity: COMMON NORMALS: no clubbing, cyanosis or edema and no pedal edema Neuro: COMMON NORMALS: patient oriented x3 Urinary Catheter Management^: Meza: Cath Placed During This Visit: yes Reason for Continuing Indwelling Catheter: Accurate Measurement of Urinary Output in Critically Ill Patients Urinary Catheter Date of Insertion: 04/29/21 Urinary Catheter Time of Insertion: 14:56 Data : 05/03/21 05:00 05/03/21 05:00 Micro: Microbiology 05/03/21 05:10 Blood Culture - Preliminary Blood SPECIMEN COLLECTED 05/03/21 05:00 Blood Culture - Preliminary Blood SPECIMEN COLLECTED A&P Assessment and plan (1) ARDS (adult respiratory distress syndrome): Acute hypoxic respiratory failure secondary to severe ARDS secondary to Covid pneumonia: Diagnosed on 04/20 . CTA Negative for P/E . Xray chest : Have shown interval development of subcutaneous emphysema , pneumomediastinum as well as bilateral small apical pneumothorax along with worsening b/l air space disease. D-Dimer: 13.16 ESR:5 CRP:5.9 Ferittin : 2769 Fibrinogen:267 Procalcitonin : 0.39 Blood Culture:NTD MRSA PCR: ABG : Completed 5 days course of Remdesivir 200 mg IV x 1, then 100 mg IV daily x 4 day. Dexamaethasone 10 days course On Vancomycin and zosyn S/P 1 Dose of Tocilizumab On therapeutic Lovenox On HHFONC as tolerated Status: Acute (2) Acute hypoxemic respiratory failure due to COVID-19: Status: Acute (3) Subcutaneous emphysema: Serial x-ray chest. Avoid positive pressure ventilation Status: Acute (4) Pneumomediastinum: will avoid high positive pressure ventilation Status: Acute (5) Pneumopericardium: 2D Echo : Technically difficult study: Probably normal left ventricular systolic function. No pericardial effusion. Status: Acute (6) Hypertension: Currently blood pressure is well controlled Status: Acute (7) DVT prophylaxis: On Lovenox Status: Acute Attestations Medical Necessity Statement*: Patient needs to be in hospital for the management of severe ARDS. 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
[2021-05-04 00:45] LABS: Basophils # 0.1 10^3/uL (0.0-0.1); Basophils % 0.7 %; Eosinophils # 0.2 10^3/uL (0.0-0.8); Eosinophils % 0.9 %; Hematocrit 46.1 % (42.0-52.0); Hemoglobin 14.7 g/dL (11.7-16.6); Lymphocytes # 2.9 10^3/uL (0.8-4.8); Lymphocytes % 13.6 %; Mean Corpuscular HGB Conc 31.9 g/dL (30.0-36.0); Mean Corpuscular Hemoglobin 30.3 pg (28.0-34.0); Mean Corpuscular Volume 95.1 fL (80-94); Mean Platelet Volume 11.5 fL (7.4-10.4); Monocytes # 0.4 10^3/uL (0.2-0.9); Monocytes % 2.1 %; Neutrophils # 15.82 10^3/uL (1.8-7.7); Nucleated Red Blood Cells # 0.1 /100WBC; Nucleated Red Blood Cells % 0.5 %; Platelet Count 194 10^3/cmm (130-400); Red Blood Count 4.85 10^6/uL (4.1-5.3); Red Cell Distribution Width 13.2 % (12.1-15.1); White Blood Count 21.4 10^3/uL (4.0-10.0)
[2021-05-04 00:57] LABS: D Dimer 8.19 ug/mIFEU (0-0.59)
[2021-05-04 01:00] VITALS: PULSE 142; O2SAT 88
[2021-05-04 01:02] LABS: Alanine Aminotransferase 91 U/L (0-41); Albumin Level 2.5 g/dL (3.5-5.2); Alkaline Phosphatase 143 IU/L (40-130); Blood Urea Nitrogen 20 mg/dL (6-20); Calcium 7.5 mg/dL (8.5-10.5); Carbon Dioxide 20 mmol/L (22-29); Chloride 83 mmol/L (98-107); Globulin 1.7 g/dL (1.3-4.6); Glomerular Filtration Rate 48.1 mL/min (90-130); Glucose 399 mg/dL (65-115); Magnesium 2.8 mg/dL (1.7-2.3); Osmolality Calculated 293 mOsm/kg (285-295); Sodium 132 mmol/L (136-145); Total Bilirubin 0.6 mg/dL (0.15-1.2); Total Protein 4.2 g/dL (6.6-8.7)
[2021-05-04] MEDS: EPINEPHrine 2.5 MG in sodium chloride 0.9% 250 ML 60.6 MG IV (01:02)
[2021-05-04 01:12] LABS: Anion Gap 34.2 (5-19); Aspartate Amino Transferase 99 U/L (0-40); Lactate (Lactic Acid level) 19.3 mmol/L (0.5-2.2); Phosphorus 10.3 mg/dL (2.5-4.5); Potassium 5.2 mmol/L (3.5-5.1)
[2021-05-04 01:49] LABS: Slide Review Slide Review Perform
[2021-05-04 02:00] VITALS: BP 113/64; O2SAT 73
[2021-05-04 02:02] LABS: Alveolar-Arterial Oxygen Gradi 70.9 mmHg (5-10); Arterial Blood Gas Hematocrit 47.1 % (42-52); Base Excess ABG -13.7 mmol/L (-2.0-2.0); Blood Gas Allen Test Pos; Blood Gas Sample Site Radial, right; Blood Gas Sample Type Arterial; Blood Gas Tidal Volume 0.42; Carboxyhemoglobin 0.8 %THgb (0.4-20.1); HCO3 ABG 22.6 mmol/L (22-26); HGB O2 Sat 35.7 % (95-100); Methemoglobin 0.9 % (0.4-1.5); Oxygen Device VENT; Oxygen Saturation ABG 36.3; PO2 ABG 36.4 mmHg (80.0-100.0); Potassium Level - ABG 6.2 mmol/L (3.5-5.0); Total Hemoglobin 15.4 g/dL (14-18)
[2021-05-04 02:03] LABS: ABG PH Result 6.89 (7.35-7.45)
--- NOTE | 2021-05-04 02:05 | PM.CCN ---
Critical Care Event Note Critical Care Event The high probability of a clinically significant, sudden or life threatening deterioration of the patient's [] system(s) required my full and direct attention, intervention and personal management. The critical care time is as shown. This time is in addition to time spent performing any reported procedures but includes the following: [x] Data and vital sign review and interpretation [x] Patient assessment, examination and intervention [x] Documentation [x] Medication orders and management Call to code in the ICU to assist Dr. Becerra. Patient had previously had been intubated had no pneumothoraces at the time of intubation. With onset of code recommended to Dr. Becerra that we placed bilateral chest tubes based on the previously known knowledge of pneumothorax and now on positive pressure ventilation. Tube was placed emergently while compressions ongoing. Sutured in place during pulse check. Bilaterally had significant amount of serous drainage on placement of the tubes. Also noted significant amount of air release on the right with tube placement. Critical Care Time Critical Care Time: Code activated: Yes Critical Care Time (min): 0 Procedures Chest Tube^ Chest Tube 1: Size of tube: 32 Tube sutured to skin: Yes Sterile dressing applied: Yes Incision made with: #11 blade Post procedure: sutured to skin and sterile dressing applied Wilkinson of air heard: Yes Tube Drainage: fluid Amount of initial drainage (ml): 75 Post procedure CXR?: Yes Patient tolerated procedure: Yes Chest Tube 2: Size of tube: 32 Chest tube procedure: Yes betadine prep Sterile dressing applied: Yes Incision made with: #11 blade Post procedure: sutured to skin and sterile dressing applied Wilkinson of air heard: Yes Tube Drainage: fluid Post procedure CXR?: Yes Patient tolerated procedure: Yes Coding Level of Care 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
[2021-05-04 02:07] LABS: Arterial Blood Gas Hematocrit 36.4 % (42-52); Base Excess ABG -17.8 mmol/L (-2.0-2.0); Blood Gas Sample Type Arterial; Blood Gas Tidal Volume 0.45; HCO3 ABG 18.6 mmol/L (22-26); Oxygen Device VENT; PO2 ABG 48.5 mmHg (80.0-100.0)
[2021-05-04 02:09] LABS: ABG PH Result 6.79 (7.35-7.45)
[2021-05-04 02:30] VITALS: RESP 28
[2021-05-04] MEDS: DOPamine drip 400 MG/250 ML PREMIX 72.46 MG IV (02:45)
[2021-05-04 03:00] VITALS: BP 73/54; PULSE 58; O2SAT 16
--- NOTE | 2021-05-04 03:50 | PC.NURSE ---
[facility] declined donation due to Covid dx.
--- NOTE | 2021-05-04 04:30 | PC.NURSE ---
Code Blue/CPR/Bilateral Central Line Placements; Patient continued to remain 60-70% via SPO2 after intubation. MD at bedside with RT maintaining the vent. staff scientist with RT and MD Hernan at bedside given orders to prone and paralyze patient with Nimbex, Versed, and Fentanyl. Code Blue @2216. Multiple rounds of CPR/Meds. Bilateral chest tubes placed via MD Caden. 30-50cc in output via right chest tube placement. Pressure support medications such as levo, epi, and vaso initiated. ROSC obtained @2237. Xray imaging obtained to evaluate chest cavity. Family contacted and updated on patient status and condition. Family came to bedside for discussion with Dr. Mata and Dr. Hernan MD.
--- NOTE | 2021-05-04 06:32 | PC.NURSE ---
Code Blue 0028; Multiple rounds of CPR/meds given. Bicarb initiated at 0031. Amio bolus and gtt initiated @1 via verbal orders from Dr. Esperanza MD. ROSC obtained @0040. Family updated on critical condition, and current status. Med titrations via DEC.
--- NOTE | 2021-05-04 06:38 | PC.NURSE ---
Code Blue @0100; Code blue called at 0100. Multiple rounds of CPR/Meds given. Meds include Bicarb, Calcium, 6 rounds of epi. Dopamine initiated in attempts to sustain HR. ROSC obtained @0134. Family came to bedside. discussed code status. Family made decision to update code status to AND.
--- NOTE | 2021-05-04 07:02 | PC.NURSE ---
Code Status change/End of life MD discussed risks associated with entering into covid + patient's rooms. Family understood risk, and accepted said risks. Family dressed out in PPE for personal health protection. Patient passed at 0302. Family at bedside during time of passing.
--- NOTE | 2021-05-04 07:03 | PC.NURSE ---
MTS; MTS notified of patient passing @0327. RN spoke with Patt Morgan concerning patient information. MTS released patient based on covid + result. Case number; [id number].
--- NOTE | 2021-05-04 07:05 | PC.NURSE ---
Addendum entered by Isis Cobb RN 05/05/21 05:44: witnessed waste of below medications with DIETER Serra Original Note: Waste; Waste as follows; 5mL etomidate, 80mg of succs, 98mL versed, 96mL fentanyl, 59mL propofol, 95mL nimbex, 90mL precedex was wasted with DIETER Marinelli.
--- NOTE | 2021-05-09 13:46 | P.DES_ITS ---
Discharge Providers DDS Date of Admission: 04/26/21 13:30 Date Summary Completed: 05/10/21 Attending Provider at Admission: Davide Mata Time of : 03:02 Attending Provider at Discharge: MD DIANA Castro Diagnoses Hospital Diagnoses (1) ARDS (adult respiratory distress syndrome): (2) Acute hypoxemic respiratory failure due to COVID-19: (3) Subcutaneous emphysema: (4) Pneumomediastinum: (5) Pneumopericardium: (6) Hypertension: (7) DVT prophylaxis: Reason for Visit Reason for Visit: SOB Summary Date and Time of Date of : 05/04/21 Time of : 03:02 Summary Summary: 60 year old male with past medical history of hypertension and recent diagnosis of COVID-19 on 04/20 ER visit, he was discharged home however returned on 04/21 during which time he was noted to be hypoxic requiring dexamethasone and 2L of home oxygen at discharge from ER, who again returned today with increasing respiratory distress. Upon arrival today his initial laboratory work up showed a WBC of 12.2, hgb of 15.9, hct of 46.1 and a plt of 248. Sodium of 132, potassium of 3.9, chloride of 96, bicarb of 23, BUN of 16, creatinine of 0.8, lactate acid of 2.1 Procalcitonin of 0.06. ABG was noted to be 7.64, pCO2 of 20.3 pO2 of 42.6, HCO3 of 22.1 on 4L of o2 via NC. He was transitioned to HFNC. D-dimer was also noted to be elevated at 4.63. CTA chest was then performed which showed no PE however extensive bilateral subpleural rounded ground-glass and airspace opacities are noted in the lungs concerning for pneumonic infiltrates especially COVID-19 pneumonia. He was admitted for the management of acute hypoxic respiratory failure 2/2 to COVID pneumonia. During the hospital stay he was managed as per COVID Protocol. Patient Completed 5 days course of Remdesivir was on Dexamaethasone 6mg I.V , s/p 1 Dose of Tocilizumab, inflammatory markers were trended he was kept on On therapeutic Lovenox as the inflammatrory markers were high in particular D- Dimer.He was also kept on broad spectrum abxs,Blood Cultures were negative, MRSA PCR was negative.Patient supplemental oxygen requirement kept climbing in spite of copy book management of severe COVID -19 Pneumonia.Patient unfortunately developed severe ARDS 2/2 to covid PNA as well as subcutaneous emphysema, pneumomediastinum as well as B/L small apical pneumothorax inspite of being on Non invasive ventilation ( predominantly on HHFONC and briefly on BIPAP as he failed to tolerate BIPAP even transiently ).All the above being poor prognostic indicators.Serious consideration was given throughout the hospital stay for transferring the patient to higher level of care facility but given the fact that patient was never a stable enough candidate to be transferred on a Non invasive mode of ventilation,given the risk involved in transfer. Serial xray chest were done to monitor the patient subcutaneous emphysema, pneumomediastinum , B/L small apical pneumothorax along with COVID PNA.Patient condition continued to worsen on non invasive modes of ventilation with severe coughing bouts, resulting in significant increased recovery time.On 05/03 by the evening he had decompenstaed extremely to a poor respiratory state, he was extremely encephalopathic due to severe hypoxia, had pulled multiple peripheral I.V lines through the course of the day.Multiple visits were made in the patient room during the course of the day, to assist him and to modify the medical management to facilitate him to tolerate the non invasive ventilation.Evening xray chest was done to see that if there has been any progressive worsening of any underlying B/L small apical pneumothorax, subcutaneous emphysema, pneumomediastinum, which failed to show any significant interval change. All attempts were made to avoid intubation,till the end but given the fact that the patient was significantly destaurating and was not tolerating the non invasive modes of ventilation at all it was decided to intubate the patient and place on mechanical ventilation.Prior to intubation rt femoral central line was established as the patient has lost the Peripheral I.V line.Patient was subsequently intubated and placed on mechanical ventilation, post intubation xray chest confirmed the correct placement of the E.T Tube as well as reduction in the PTX. Even post intubation patient oxygen saturation never recovered to the satisfactory level even though different ventilation modes were tried.Possibilty of interval worsening of PTX cannot be conclusively ruled out but bedside physical examination which included b/l lung arango auscultation for air entry as well as tracheal deviation, examination of neck vein distension m garett significant development of tension ptx less likely as well ventilator pressure monitoring also makes it less likely.Given the persistent severe hypoxia due to underlying severe parenchymal lung disease,Patient Coded at around 9:30 pm and initial rthym was asystole.ACLS protocol was initiated with high quality chest compressions.During the code blue multiple rounds of epinephrine, 3 Amps of bicarbonate were given as well 2 shocks were delivered for Vib as well as For V.tach along with 300 mg of amiodarone bolus. During the Code Blue b/l chest tubes were placed as there was serious concerns for the development of possible Tension PTX. ROSC was acheived.Post Code labs and abg was ordered as well as xray chest, showing correct placement of chest tubes.Patient sats still failed to peanut picker, hence the decision was made to paralyse prone the patient.Patient was subsequently proned with some improvement in saturation. patient again coded on 05/04 at around 12:28 am with ROSC at 12:40 as well around 1 am with ROSC at around 1:34 am at that time when the family decided to change the code status to AND.Patient at 030. Additional Data Confirmation of as documented by pronouncing clinician: no pulse, no respirations, no heart sounds and pupils fixed and dilated Family: at bedside Additional persons at bedside: nursing staff Was code activated?: Yes Autopsy requested?: No Advance directives?: No Hospice patient?: No Discharge Plan Discharge Patient Disposition: Condition: Stable Prescriptions: No Action acetaminophen [Tylenol Extra Strength] 500 mg Tablet 1,000 mg PO PRN RF: 0 lisinopril 10 mg tablet 10 mg PO QAM RF: 0 triamcinolone acetonide [Nasacort] 55 mcg Aerosol,[place] 2 spray INTRANASAL BID RF: 0 ibuprofen 200 mg Tablet 600 mg PO PRN RF: 0 sertraline 50 mg tablet 50 mg PO QAM RF: 0 Vitamin C 1 tab PO DAILY RF: 0 Vitamin D3 1 tab PO DAILY RF: 0 zinc 1 tab PO DAILY RF: 0 dexamethasone 6 mg tablet 6 mg PO DAILY Qty: 7 RF: 0 Patient Instructions: Opioid Safety DS Attestations Time Spent in /Discharge Care*: greater than 30 min Quality - AMI: AMI present?: No Quality - Stroke: CVA present?: No Symptom Onset Unknown: No Quality - VTE: VTE present?: No Deep Vein Thrombosis/Pulmonary Embolism Present on Admission: No Coding Level of Care Code Acute [employer] for g Fwd Diagnoses ARDS (adult respiratory distress syndrome) J80 Acute hypoxemic respiratory failure due to COVID-19 U07.1; J96.01 Subcutaneous emphysema T79.7XXA Pneumomediastinum J98.2 Pneumopericardium I31.9 Hypertension I10 DVT prophylaxis Z29.9
--- NOTE | 2021-05-09 13:47 | PM.ACPR ---
Acute Procedures Central Line Placement^: Right Femoral: Time out performed: Yes Patient placed on monitor/pulse ox: Yes MD prep: mask, gown and gloves Central line prep: Chlorhexidine scrub Local anesthesia used: lidocaine 1% Ultrasound used for placement: Yes Central line lumen inserted: triple Post procedure: sutured in place, good blood return and all ports aspirated, flushed, capped Patient tolerated procedure: well Complications: none
--- NOTE | 2021-05-09 13:48 | PM.ACPR ---
Acute Procedures Intubation: Time out performed: Yes Sedative: etomidate Mg given: 30 Paralytic: succinylcholine Mg given: 120 Laryngoscope: fiber optic video scope ET tube size: 8 ET tube uncuffed: Yes Tube secured depth (cm): 23 Tube secured location: lips Tube placement confirmation: visualized tube passing through cords, equal breath sounds bilaterally, no breath sounds over epigastrium and color change noted Patient tolerated procedure: well and no complications Intubation complications: none
== END 2021-05-04 07:35 | disposition expired | DRG 208 ==
LOC: ER 15:30 → MEDSURG 15:36 → ICU 04-27 17:34
PROVIDERS: Emergency Medicine; Physician Assistant; Admitting Provider Hospitalist; Emergency Provider Family Medicine; Visit Provider Internal Medicine
DX: U07.1 COVID-19 (principal); J12.82 Pneumonia due to coronavirus disease 2019; J80 Acute respiratory distress syndrome; J93.0 Spontaneous tension pneumothorax; I31.9 Disease of pericardium, unspecified; I47.2 Ventricular tachycardia; I10 Essential (primary) hypertension; J98.2 Interstitial emphysema; I46.9 Cardiac arrest, cause unspecified
CPT/HCPCS: 32551; 36415; 36592; 36600; 51702; 71045; 71250; 71275; 80051; 80053; 80202; 82330; 82728; 82803; 82805; 83605; 83735; 83880; 84100; 84145; 84484; 85025; 85378; 85384; 85651; 86140; 87040; 87086; 93005; 93308; 94640; 94799; 96365; 96367; 96372; 96375; 99285; A4570; C1751; C9113; J0171; J0282; J0330; J1100; J1265; J1650; J1940; J1956; J2060; J2250; J2270; J2543; J2704; J3010; J3262; J3370; J3490; J7050; J7060; J7626; Q9967